=== PATIENT | female | born 1970 | race Caucasian/White ===

== ENCOUNTER → 2016-12-07 | Outpatient (CLI) | payer MEDICAID ==
--- NOTE | 2016-12-08 10:21 | MM ---
Reason for exam: screening (asymptomatic). Last mammogram was performed 11 months ago. History: Family history of breast cancer in cousin, premenopausal breast cancer in mother at age 37, and breast cancer in sister at age 50. Took hormonal contraceptives for 10 years beginning at age 23. Physical Findings: A clinical breast exam by your physician is recommended on an annual basis and results should be correlated with mammographic findings. MG 3D Screening Mammo W/Cad Bilateral CC and MLO view(s) were taken. Prior study comparison: December 23, 2015, bilateral MG 3d diag mammo w/cad JOSE LUIS. December 16, 2014, bilateral MG screening mammo w CAD. The breast tissue is heterogeneously dense. This may lower the sensitivity of mammography. There is no discrete abnormality. No significant changes when compared with prior studies. ASSESSMENT: Negative, BI-RAD 1 RECOMMENDATION: Routine screening mammogram of both breasts in 1 year.
== END | disposition home or self-care (01) ==
LOC: RADMAMWWP 07:37
PROVIDERS: ATTEND Family Medicine
DX: Z12.31 Encounter for screening mammogram for malignant neoplasm of breast (principal)
CPT/HCPCS: 77063; G0202

== ENCOUNTER → 2018-02-12 | Outpatient (CLI) | payer MEDICAID ==
[2018-02-12 11:40] VITALS: BP 129/83; PULSE 71; TEMP 97.7; BMI 23.6
--- NOTE | 2018-02-12 12:16 | P.HPOB ---
History of Present Illness H&P Date: 02/12/18 Chief Complaint: The patient is here for her routine gynecologic exam and mammogram. This is a 47-year-old within LNMP of 2015. She has had very scant vaginal bleeding since her endometrial ablation in 2012. Her menstrual periods are essentially nonexistent except for occasional scant spotting. She does believe her ovaries are still functioning and still have some cyclic breast changes. She has noticed more hot flashes especially at night. She can wake with hot flashes. She denies any significant problems with hot flashes during the day. She has been since 2015 and is not seeing anybody at this time. Review of Systems She has lost 13 pounds over the last 3 years. She denies respiratory, cardiac, or G.I. problems. Musculoskeletal: she has mild back pains with certain movements. Past Medical History Past Medical History: Fibromyalgia History of Any Multi-Drug Resistant Organisms: None Reported Past Surgical History: Uterine Ablation (In 2012) Past Anesthesia/Blood Transfusion Reactions: Previous Problems w/ Anesthesia, Motion Sickness Additional Past Anesthesia/Blood Transfusion Reaction / Comment(s): lidocaine did not work " felt everything throughout the procedure for uterine ablation" Past Psychological History: Anxiety, Depression Smoking Status: Never smoker Past Alcohol Use History: Occasional Past Drug Use History: None Reported - Past Family History Mother Family Medical History: Cancer (Breast cancer) Additional Family Medical History / Comment(s): breast Medications and Allergies Home Medications Medication Instructions Recorded Confirmed Type Flexeril(Dose Unknown) 1 tab PO DIRECTED PRN 01/18/15 02/12/18 History Allergies Allergy/AdvReac Type Severity Reaction Status Date / Time lidocaine AdvReac "did not Verified 02/12/18 11:41 work-felt everything" Exam - Vital Signs Vital signs: Vital Signs Temp Pulse BP 02/12/18 11:36 97.7 F 71 129/83 Intake and Output 02/11/18 02/12/18 02/12/18 22:59 06:59 14:59 Other: Weight 70.307 kg Height 5'8", BMI 23.6. This is a well-developed well-nourished white female who is alert and oriented times 3 in no acute distress. HEENT: Within normal limits. NECK: Supple without mass or thyromegaly. CHEST AND LUNGS: Clear to auscultation. HEART: Regular rate and rhythm. BREASTS: Are without mass or discharge. AXILLARY EXAM: Negative for adenopathy. BACK: Negative for CVA tenderness. ABDOMEN: Soft, nontender, without palpable masses. PELVIC EXAM: Normal external genitalia. Cervix and vagina appear normal. There is no unusual discharge. There is no evidence of prolapse. The uterus is multiparous, midposition, nongravid size and nontender. There are no palpable adnexal masses or tenderness. RECTAL EXAM: negative for mass or tenderness and is negative for occult blood. EXTREMITIES: Nontender. IMPRESSION: 1. 47-year-old perimenopausal female with mild vasomotor symptoms at night. 2. Scant menstrual flow since her endometrial ablation. 3. Normal gynecologic exam. PLAN: 1. Pap smear was performed. 2. Self breast examination was discussed. 3. Screening mammogram will be done today. 4. Osteoporosis prevention was discussed. 5. The patient will keep a menstrual calendar and call if she's having menstrual problems. 6. STD prevention was discussed. I have recommended that she limit sexual partners and use condoms if she is sexually active. 7. She will return in one year.
--- NOTE | 2018-02-14 12:11 | MM ---
Reason for exam: screening (asymptomatic). Last mammogram was performed 1 year and 2 months ago. History: Family history of premenopausal breast cancer in mother at age 37 and breast cancer in sister at age 50. Took hormonal contraceptives for 10 years beginning at age 23. Physical Findings: A clinical breast exam by your physician is recommended on an annual basis and results should be correlated with mammographic findings. MG 3D Screening Mammo W/Cad Bilateral CC and MLO view(s) were taken. Prior study comparison: December 07, 2016, bilateral MG 3d screening mammo w/cad. December 23, 2015, bilateral MG 3d diag mammo w/cad [facility]SE LU[facility]. The breast tissue is heterogeneously dense. This may lower the sensitivity of mammography. No significant changes when compared with prior studies. ASSESSMENT: Negative, BI-RAD 1 RECOMMENDATION: Routine screening mammogram of both breasts in 1 year.
--- NOTE | 2018-02-19 13:01 | P.PN ---
Progress Note - Text Progress Note Date: 02/19/18 The patient's Pap smear from 02/12/2018 was negative that showed a shift in the bacteria consistent with bacterial vaginosis. The patient was notified of this by phone. She states she does have occasional slight discharge and slight odor. A/bacterial vaginosis P/metronidazole 500 mg 1 PO b.i.d. times 7 days. No refills. An E- prescription will be sent to [facility].
== END | disposition home or self-care (01) ==
LOC: WWCWWP 10:19
PROVIDERS: ATTEND Obstetrics & Gynecology
DX: Z12.31 Encounter for screening mammogram for malignant neoplasm of breast (principal)
CPT/HCPCS: 77063; 77067

== ENCOUNTER → 2018-03-19 | Outpatient (CLI) | payer MEDICAID ==
--- NOTE | 2018-03-19 07:42 | XR ---
EXAMINATION TYPE: XR chest 2V DATE OF EXAM: 03/19/2018 COMPARISON: NONE HISTORY: Mid thoracic and chest pain. TECHNIQUE: Frontal and lateral views of the chest are obtained. FINDINGS: There is no focal air space opacity, pleural effusion, or pneumothorax seen. The cardiac silhouette size is within normal limits. Spine is somewhat straightened on lateral view. IMPRESSION: No acute cardiopulmonary process.
== END | disposition home or self-care (01) ==
LOC: RADXRMAIN 06:51
PROVIDERS: ATTEND Physician Assistant
DX: M54.6 Pain in thoracic spine (principal)
CPT/HCPCS: 71046

== ENCOUNTER → 2018-04-30 | Outpatient (CLI) | payer MEDICAID ==
--- NOTE | 2018-04-30 08:04 | XR ---
EXAMINATION TYPE: XR thoracic spine complete DATE OF EXAM: 04/30/2018 COMPARISON: NONE HISTORY: Back pain Alignment is anatomic. There is no compression deformities. Multilevel degenerative disc disease and hypertrophic changes. Curvature the spine noted. Lungs are clear. IMPRESSION: 1. Multilevel degenerative disc disease.
== END ==
LOC: RADXRMAIN 06:16
PROVIDERS: ATTEND Family Medicine
DX: M51.34 Other intervertebral disc degeneration, thoracic region (principal)
CPT/HCPCS: 72072

== ENCOUNTER → 2018-07-24 | Outpatient (CLI) | payer MEDICAID ==
--- NOTE | 2018-07-24 07:34 | MR ---
EXAMINATION TYPE: MR thoracic spine wo con DATE OF EXAM: 07/24/2018 COMPARISON: Thoracic spine x-ray April 30, 2018 HISTORY: Thoracic back pain for over 2 years per patient TECHNIQUE: Multiplanar, multisequence imaging of thoracic spine is performed without contrast FINDINGS: Spinal cord shows normal course, caliber, and signal as it courses the thoracic spine. Cecil tebral body heights are satisfactory. There is slight levoconvex scoliotic curvature centered in the upper to midthoracic spine on coronal images. Disc space heights are maintained. No large posterior d isc herniations are seen on sagittal images. Mild to minimal multilevel anterior spurring is present. Bone marrow signal intensity is felt within normal limits. Review of axial images shows left paracentral disc protrusion mildly effacing anterolateral thecal sa c at T8-T9 level on axial image 14 series 601. There are additional broad-based small disc protrusions mildly effacing anterior thecal sac T11-T12 and T12-L1 levels. Adjacent to aorta with local mass effect there is 1.5 x 0.9 cm oval T2 hyperintense lesion anterior a nd superior to the left neural foramina and adjacent to the T5 vertebra felt to reflect simple thin-w alled cyst. Etiology uncertain but would be favored benign. IMPRESSION: Mild multilevel degenerative changes in mid to lower thoracic spine as detailed above.
== END | disposition home or self-care (01) ==
LOC: RADMRIMAIN 06:07
PROVIDERS: ATTEND Family Medicine
DX: M47.814 Spondylosis without myelopathy or radiculopathy, thoracic region (principal)
CPT/HCPCS: 72146

== ENCOUNTER → 2018-09-19 | Outpatient (CLI) | payer MEDICAID ==
--- NOTE | 2018-09-19 13:39 | CT ---
EXAMINATION TYPE: CT chest w con DATE OF EXAM: 09/19/2018 COMPARISON: None HISTORY: Chest wall mass CT DLP: 520 mGycm, Automated exposure control for dose reduction was used. CONTRAST: Performed injected with 100 ml mL of Isovue 300. TECHNIQUE: Axial images were obtained at 5 mm thick sections. Reconstructed images are reviewed on [employer] computer in the coronal plane. FINDINGS: Portion of the thyroid visualized is normal. No suspicious lung nodules or focal infiltrates are present. No enlarged mediastinal or hilar adenopathy is evident. There are small pretracheal lymph nodes pre sent. The ascending aorta diameter at the level of the main pulmonary artery is 3.2 cm. The main pul monary artery diameter at the bifurcation is 2.[address] sections are obtained through the upper abdomen. Abdomen is essentially unremarkable. IMPRESSIONS: 1. Normal Chest CT.
== END ==
LOC: RADCTMAIN 12:01
PROVIDERS: ATTEND Surgery
DX: R22.2 Localized swelling, mass and lump, trunk (principal)
CPT/HCPCS: 71260; Q9967

== ENCOUNTER → 2019-02-19 | Outpatient (CLI) | payer MEDICAID ==
[2019-02-19 08:14] VITALS: BP 117/81; PULSE 92; RESP 16; TEMP 98; BMI 25.9
--- NOTE | 2019-02-19 09:03 | P.HPOB ---
History of Present Illness H&P Date: 02/19/19 Chief Complaint: The patient is here for her routine gynecologic exam and ma mmogram. This is a 48-year-old G6PD for with an LNMP of 2016. She is status post endometrial ablation in 2012. Her menstrual periods have progressively gotten welt rougher and have been very scant during the past 3 years. She has had no vaginal bleeding during the past 3 months. She denies any significant hot flashes. She is without gynecologic complaints. Review of Systems The patient has gained 15 pounds over the last year. This was after losing 20 pounds during the prior years. She denies respiratory, cardiac, or G.I. problems. 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 Previous hypermenorrhea improved post endometrial ablation. History of Any Multi-Drug Resistant Organisms: None Reported Past Surgical History: Uterine Ablation Additional Past Surgical History / Comment(s): Endometrial ablation 2012. Colonoscopy 2016(next 5yrs). Past Anesthesia/Blood Transfusion Reactions: Previous Problems w/ Anesthesia, Motion Sickness Additional Past Anesthesia/Blood Transfusion Reaction / Comment(s): lidocaine did not work " felt everything throughout the procedure for uterine ablation" Past Psychological History: Anxiety, Depression Smoking Status: Never smoker Past Alcohol Use History: Occasional (4-6 per week) Past Drug Use History: None Reported Additional History: She has been since 2015. She works at [employer]. - Past Family History Mother Family Medical History: Cancer Additional Family Medical History / Comment(s): breast cancer. Maternal aunt and maternal cousin had breast cancer. Sister(s) Family Medical History: Cancer Additional Family Medical History / Comment(s): Breast cancer Father Family Medical History: Cancer Additional Family Medical History / Comment(s): Colon cancer. Medications and Allergies Home Medications Medication Instructions Recorded Confirmed Type Cholecalciferol [Vitamin D3] 1,000 unit PO DAILY 02/19/19 02/19/19 History Allergies Allergy/AdvReac Type Severity Reaction Status Date / Time lidocaine AdvReac "did not Verified 02/19/19 08:14 work-felt everything" Exam Vital Signs Temp Pulse Resp BP Pulse Ox 02/19/19 08:07 98.0 F 92 16 117/81 99 Intake and Output 02/18/19 02/19/19 02/19/19 22:59 06:59 14:59 Other: Weight 78.471 kg Height 5'8", weight 173 pounds, BMI 26.3. This is a well-developed well-nourished white female who is alert and oriented times 3 in no acute distress. HEENT: Within normal limits. NECK: Supple without mass or thyromegaly. CHEST AND LUNGS: Clear to auscultation. HEART: Regular rate and rhythm. BREASTS: Are without mass or discharge. AXILLARY EXAM: Negative for adenopathy. BACK: Negative for CVA tenderness. ABDOMEN: Soft, nontender, without palpable masses. PELVIC EXAM: Normal external genitalia. Cervix and vagina appear normal. There is no unusual discharge. There is no evidence of prolapse. The uterus is midposition, nongravid size and nontender. There are no palpable adnexal masses or tenderness. RECTAL EXAM: rectovaginal exam is negative for mass or tenderness and is negative for occult blood. EXTREMITIES: Nontender. IMPRESSION: 1. 48 year old female with normal gynecologic exam with scant menstrual bleeding after her endometrial ablation in 2012. 2. 3 months of amenorrhea. Possible perimenopause. 3. Strong family history of breast cancer in her mother, sister, and to second- degree relatives. The patient states she is BRCA negative. PLAN: 1. Pap smear was deferred since she had a negative one on 02/12/2018. 2. Self breast awareness was discussed with the patient. 3. Screening mammogram will be done today. 4. Osteoporosis prevention was discussed. I have stressed the importance of adequate calcium, vitamin D and regular exercise. Recommended amounts of calcium and vitamin D were also discussed. 5. She will keep a menstrual calendar of any vaginal bleeding. She will call if she is having vaginal bleeding problems, or bleeding after 12 months of no vaginal bleeding. 6. She was advised to return in one year for her annual well woman exam.
--- NOTE | 2019-02-21 10:25 | MM ---
Reason for exam: screening (asymptomatic). Last mammogram was performed 1 year ago. History: Family history of premenopausal breast cancer in mother at age 37 and breast cancer in sister at age 50. Took hormonal contraceptives for 10 years beginning at age 23. Physical Findings: A clinical breast exam by your physician is recommended on an annual basis and results should be correlated with mammographic findings. MG 3D Screening Mammo W/Cad Bilateral CC and MLO view(s) were taken. Prior study comparison: February 12, 2018, bilateral MG 3d screening mammo w/cad. December 07, 2016, bilateral MG 3d screening mammo w/cad. The breast tissue is heterogeneously dense. This may lower the sensitivity of mammography. No significant changes when compared with prior studies. ASSESSMENT: Negative, BI-RAD 1 RECOMMENDATION: Routine screening mammogram of both breasts in 1 year.
== END | disposition home or self-care (01) ==
LOC: WWCWWP 08:00
PROVIDERS: ATTEND Obstetrics & Gynecology
DX: Z12.31 Encounter for screening mammogram for malignant neoplasm of breast (principal)
CPT/HCPCS: 77063; 77067

== ENCOUNTER → 2019-04-01 | Outpatient (CLI) | payer MEDICAID ==
[2019-04-01 11:51] VITALS: BP 121/88; PULSE 73; RESP 16
--- NOTE | 2019-04-01 14:52 | P.PAINCN ---
History of Present Illness - Reason for Consult Consult date: 04/01/19 - History of Present Illness This is an initial consultation visit for this 48 years old female with a chronic history, of severe left-sided mid back pain, started more than 3 years ago, and patient was diagnosed with thoracic close to T5 vertebra and the the Aorta , and she was evaluated by cardio thoracic surgeon at [facility] , and he recommended no surgical intervention, patient reported that she had continuous pain in the mid back area with intensity 5/10 increased with any activity, she continued to work, but the intensity of the pain interfering with her quality of life, also patient complaining of severe right shoulder pain, started after she had a flu vaccine in August 2018, the pain in the right shoulder increases with any shoulder movement, he denies any motor or sensory deficit she denies any numbness or tingling sensation in the right shoulder Past Medical History Past Medical History: Fibromyalgia 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 Previous hypermenorrhea improved post endometrial ablation. History of Any Multi-Drug Resistant Organisms: None Reported Past Surgical History: Uterine Ablation Additional Past Surgical History / Comment(s): Endometrial ablation 2012. Colonoscopy 2017(next 5yrs). Past Anesthesia/Blood Transfusion Reactions: Previous Problems w/ Anesthesia, Motion Sickness Additional Past Anesthesia/Blood Transfusion Reaction / Comm: lidocaine did not work " felt everything throughout the procedure for uterine ablation" Past Psychological History: Anxiety, Depression Smoking Status: Never smoker Past Alcohol Use History: Occasional Past Drug Use History: None Reported - Past Family History Sister(s) Family Medical History: Cancer Additional Family Medical History / Comment(s): Breast cancer Father Family Medical History: Cancer Additional Family Medical History / Comment(s): Colon cancer. Mother Family Medical History: Cancer Additional Family Medical History / Comment(s): breast cancer. Maternal aunt and maternal cousin had breast cancer. Medications and Allergies Home Medications Medication Instructions Recorded Confirmed Type Cholecalciferol [Vitamin D3] 1,000 unit PO DAILY 02/19/19 02/19/19 History Cyclobenzaprine [Flexeril] 10 mg PO DAILY PRN 04/01/19 04/01/19 History FLUoxetine HCL [PROzac] 20 mg PO DAILY 04/01/19 04/01/19 History Allergies Allergy/AdvReac Type Severity Reaction Status Date / Time lidocaine AdvReac "did not Verified 04/01/19 11:40 work-felt everything" Physical Exam Vitals: Vital Signs Pulse Resp BP Pulse Ox 04/01/19 11:42 73 16 121/88 97 Intake and Output 03/31/19 04/01/19 04/01/19 22:59 06:59 14:59 Other: Weight 76.204 kg Social history : not smoker , NO ETOH , NO Illegal drugs u : Review of Systems : - Constitutional : no chills , no fever , no night sweats , - Ears : no ear discharge , no change in hearing -Nose, Mouth ,Throat ; no bleeding gums, no sore throat , no epistaxis , -Cardiovascular : Denies chest pain, , no orthopnea , no palpitation -Respiratory : Denies cough , no dyspnea , no hemoptysis -Gastrointestinal : no change in bowel habits , no coffee-ground emesis . -Genitourinary : No hematuria , no discharge , no incontinence, -Musculoskeletal : No gait dysfunction , report left side mid back pain , - Neurological : no ataxia , no tremor , no sezure , -Psychatric : no suicidal ideation no hallucination - Endocrine : no cold intolerence , no polyuria , no polydypsia , -Hematologic : no easy bleeding , no easy brusing , -Allergic / immm : no angioedema , no wheezing ,no allergic rhinitis -Integumentary : no brttle nails , no change hair / nails , no foot/leg ulcers . Physical Examinations : -Constitutional : Cooperative , not in acute distress . -HEENT : nech ; supple , no Lymphadenopathy , no Thyromegaly , :eyes : no icterus, no photophobia . - musculoskeltal: normal gait External rotation of the right shoulder associated with severe pain Shoulder shows full range of motion bilaterally . Flexion and rotation and extension of the torso associated with pain positive thoracic facet loading test . Lumber spine moter stegnth lower extremities ,thigh and legs 5/5 Right side , 5/5 Left side Results Comments: MRI of the thoracic spine done 07/24/2018= left T8 9 bulging disc left cyst adjacent to the T5 vertebral, Assessment and Plan Plan: Assessment and plan= mid back pain secondary to thoracic degenerative disc disease, thoracic spondylosis Patient could benefit from thoracic epidural steroid injection at T8 9 (left paramedian approach ) Patient continued to have pain after the thoracic epidural then we could consider doing diagnostic medial branch block left side thoracic area Left sideT5 to T89. Right shoulder arthralgia, we'll refer patient to the Dr. Tinsley for evaluation regarding right shoulder pain. Time with Patient: Greater than 30 PQRS Measure Charge Sheet Measure #130: Documentation of Current Meds in Medical Chart: Patient's medications documented in chart Measure #226: Tobacco Use: Screen & Cessation Intervention: Pt not a tobacco user Measure #111: Pneumonia Vaccination: Pneumococcal vaccine NOT administered or previously given Measure #47: Advance Care Plan: Advance care planning discussed & documented, pt chose/unable to give Measure #412: Opioid Treatment Agreement: No documentation of signed opioid treatment agreement Measure #408: Opioid Therapy Follow-up Evaluation: Patient had NO f/u eval minimum every 3 months during opioid therapy Measure #317: Preventitive Care & Scrn High Bld Press & F/U: Normal blood pressure, f/u not required Measure #128: Body Mass Index (BMI) Screening & Follow-up: BMI documented ABOVE normal parameters - f/u documented Measure #131: Pain Assessment & Follow-up: Pain positive & plan documented, Follow-up scheduled Measure #431: Unhealthy Alcohol Use Preventative Care & Scrn: Patient not identified as an unhealthy alcohol user PQRS Narrative: Smoking Status Never smoker Do You Want the Pneumonia No Vaccine AT THIS TIME? Blood Pressure 121/88 Pain Intensity [Left Upper 5 Back] Scale Used Numeric (1 - 10) Hx Alcohol Use (MH) No Home Medications: Ambulatory Orders Cholecalciferol [Vitamin D3] 1,000 unit PO DAILY 02/19/19 Cyclobenzaprine [Flexeril] 10 mg PO DAILY PRN 04/01/19 FLUoxetine HCL [PROzac] 20 mg PO DAILY 04/01/19
== END | disposition home or self-care (01) ==
LOC: PNWHC3 11:26
PROVIDERS: ATTEND Specialist
DX: G89.29 Other chronic pain (principal); M51.34 Other intervertebral disc degeneration, thoracic region; M47.814 Spondylosis without myelopathy or radiculopathy, thoracic region; M25.511 Pain in right shoulder; F32.9 Major depressive disorder, single episode, unspecified; F41.9 Anxiety disorder, unspecified; Z79.899 Other long term (current) drug therapy; Z88.6 Allergy status to analgesic agent
CPT/HCPCS: 99211

== ENCOUNTER 2019-04-07 06:04 | Day surgery (SDC) | payer MEDICAID ==
[2019-04-02 12:27] VITALS: BMI 25.5
[~2019-04-07 06:04] MED LIST: LACTATED RINGERS 1,000 ML IV SCH
[2019-04-07] MEDS ORDERED: LIDOCAINE 1% 20 ML VIAL (10MG/ML) FOR IV START INTRADERMA ONE (06:35)
[2019-04-07 06:38] VITALS: RESP 16; TEMP 98.2
--- NOTE | 2019-04-07 07:17 | P.PCN ---
Date of Procedure: 04/07/19 Procedure(s) Performed: PREOPERATIVE DIAGNOSIS: 1- Thoracic Degenerative Disc Diseases 2-Thoracic spondylosis with Facet arthropathy without myelopathy POSTOPERATIVE DIAGNOSIS: 1-Thoracic Degenerative Disc Diseases 2-Thoracic spondylosis with Facet arthropathy without myelopathy PROCEDURE 1. Thoracic epidural steroid injection under fluoroscopic guidance at the T8-9 level. ( Left paramedian approach) 2. Thoracic epidurogram. ANESTHESIA: Local with 1% lidocaine 3 ml and , moderate sedation with intravenous Versed 2 mg ,and fentanyle 100 Mcg EBL: Minimal PROCEDURE INDICATION: The patient with mid back pain and radiculitis symptoms unresponsive to conservative treatment. Fluoroscopy was used to optimize visualization of the needle placement and to maximize safety. PROCEDURE DESCRIPTION / TECHNIQUE: The patient was seen and identified in the preoperative area. Risks, benefits, complications including but not limited to infections ,bleeding ,allergic reaction to the medications ,nerve damage and not complete pain releife , and alternatives were discussed with the patient. The patient agreed to proceed with the procedure and signed the consent. IV was started, and vital signs were stable. Patient was taken to the OR and time out was completed. The patient was placed in the prone position on procedure table and a pillow was placed under the abdomen to reduce lumbar lordosis. The thoracic area was prepped and draped in the usual sterile fashion.ere closely monitored during the procedure. Conscious sedation was used during the procedure to decrease patients anxiety. Vital signs was monitered during the entire procedure. Using anterior-posterior fluoroscopy, the T8-9 interlaminar space was identified and the skin over this site was marked and then infiltrated with 1% lidocaine subcutaneously. Subsequently, a 20-gauge Tuohy epidural needle was inserted and advanced toward the epidural space using the ``Loss of resistance technique and guided by AP and lateral fluoroscopy. The correct needle position in the epidural space was verified with the injection of 2 mL of the water soluble contrast dye Isovue 200 contrast and observing an excellent epidurogram with the epidural spread of the dye, after negative aspiration for blood and CSF and in the absence of paresthesias. Again after negative aspiration, a 6 ml mixture containing 80 mg of Depo-medrol , and 2 ml of preservative free Normal Saline, and 2 ml of preservative free lidocaine 1% solution was injected and a washout of epidurogram was seen. Needle was withdrawn intact, skin was cleansed, and bandages were applied. COMPLICATIONS: None DISPOSITION / PLANS: The patient was placed in a supine position and transferred to the recovery area in a stable condition for observation. There was no evidence of lower extremity motor or sensory deficit after the procedure. Patient was discharged from the recovery room after meeting discharge criteria. Home discharge instructions were given to the patient by the staff. The patient was reexamined prior to discharge. The patient will schedule a follow up in the clinic in 2-4 weeks.
--- NOTE | 2019-04-07 07:56 | FL ---
EXAMINATION TYPE: FL guided pain mgmt statistic DATE OF EXAM: 04/07/2019 HISTORY: Flouroscopy time 2 seconds of fluoroscopy provided. IMPRESSION: 1. Fluoroscopy time.
[2019-04-07 08:09] VITALS: BP 112/77; PULSE 77
[2019-04-07] MEDS ORDERED: IV FLUID CONTINUATION 1,000 ML IV ONE (08:20)
== END 2019-04-07 08:45 | disposition home or self-care (01) ==
LOC: ORPAIN 06:04
PROVIDERS: ATTEND Specialist
DX: M51.34 Other intervertebral disc degeneration, thoracic region (principal); M47.24 Other spondylosis with radiculopathy, thoracic region; M79.7 Fibromyalgia; F32.9 Major depressive disorder, single episode, unspecified; F41.9 Anxiety disorder, unspecified; Z80.3 Family history of malignant neoplasm of breast; Z80.0 Family history of malignant neoplasm of digestive organs; Z79.899 Other long term (current) drug therapy; Z88.8 Allergy status to other drugs, medicaments and biological substances
CPT/HCPCS: 81025; 62321; J1030; J3301; J3010; Q9966

== ENCOUNTER 2019-04-23 08:51 | Day surgery (SDC) | payer MEDICAID ==
[2019-04-21 09:46] VITALS: BMI 25.8
[2019-04-23 09:06] VITALS: RESP 16; TEMP 98.4
[2019-04-23] MEDS ORDERED: LIDOCAINE 1% 20 ML VIAL (10MG/ML) FOR IV START INTRADERMA ONE (09:14)
[2019-04-23] MEDS ORDERED: LACTATED RINGERS 1,000 ML IV ONE (09:14)
--- NOTE | 2019-04-23 09:38 | P.PCN ---
Date of Procedure: 04/23/19 Description of Procedure: PREOPERATIVE DIAGNOSIS: Thoracic radiculopathy POSTOPERATIVE DIAGNOSIS: Thoracic radiculopathy PROCEDURE 1. thoracic epidural steroid injection under fluoroscopic guidance at the T 8-9 level. 2. thoracic epidurogram. ANESTHESIA: Local with 1% lidocaine 5 ml and 2mg versed and 100mcg fentanyl EBL: Minimal PROCEDURE INDICATION: The patient with low back pain and radiculitis symptoms unresponsive to conservative treatment. Fluoroscopy was used to optimize visualization of the needle placement and to maximize safety. PROCEDURE DESCRIPTION / TECHNIQUE: The patient was seen and identified in the preoperative area. Risks, benefits, complications including but not limited to infections ,bleeding ,allergic reaction to the medications, nerve damage and incomplete pain relief , as well as alternatives to the procedure were discussed with the patient. The patient agreed to proceed with the procedure and signed the consent. IV was started, and vital signs were stable. Patient was taken to the OR and time out was completed. The patient was placed in the prone position on procedure table and a pillow was placed under the abdomen. The thoracic area was prepped and draped in the usual sterile fashion. Vitals were closely monitored during the procedure. Using anterior-posterior fluoroscopy, the t 8-9 interlaminar space was identified and the skin over this site was marked and then infiltrated with 1% lidocaine subcutaneously. Subsequently, a 20-gauge Tuohy epidural needle was inserted and advanced toward the epidural space using the Loss of resistance technique via paramedian approach and guided by AP and lateral fluoroscopy. The correct needle position in the epidural space was verified with the injection of 1 mL of the water soluble contrast dye Omnipaque 180 contrast and observing an excellent epidurogram with the epidural spread of the dye, after negative aspiration for blood and CSF and in the absence of paresthesias. Again after negative aspiration, a 3 ml mixture containing 40mg of depomedrol and 2 ml of preservative free Normal Saline was injected and a washout of epidurogram was seen. Needle was withdrawn intact, skin was cleansed, and bandages were applied. COMPLICATIONS: None DISPOSITION / PLANS: The patient was placed in a supine position and transferred to the recovery area in a stable condition for observation. There was no evidence of lower extremity motor or sensory deficit after the procedure. Patient was discharged from the recovery room after meeting discharge criteria. Home discharge instructions were given to the patient by the staff. The patient was reexamined prior to discharge. patient will follow up in the clinic for lumbar paraspinal muscle spasm. I have given her a recommendation to trial chelated magnesium.
--- NOTE | 2019-04-23 09:47 | FL ---
EXAMINATION TYPE: FL guided pain mgmt statistic DATE OF EXAM: 04/23/2019 CLINICAL HISTORY: Thoracic pain. TECHNIQUE: Fluoroscopy. COMPARISON: None. FINDINGS: Fluoroscopic guidance was provided during pain relief procedure performed by Dr. Dos Santos. A total of 7 seconds of fluoroscopic time was utilized during the procedure and 1 spot images are ac quired. Images acquired shows needle localization of the thoracic spine. IMPRESSION: As Above.
[2019-04-23 10:19] VITALS: BP 111/75; PULSE 58
[2019-04-23] MEDS ORDERED: IV FLUID CONTINUATION 1,000 ML IV ONE (10:44)
== END 2019-04-23 10:46 | disposition home or self-care (01) ==
LOC: ORPAIN 08:51
PROVIDERS: ATTEND Hospitalist
DX: M54.14 Radiculopathy, thoracic region (principal); M62.830 Muscle spasm of back; N95.9 Unspecified menopausal and perimenopausal disorder
CPT/HCPCS: 62321; J2250; J1030; J3010; Q9966; 99152

== ENCOUNTER → 2019-05-07 | Outpatient (CLI) | payer MEDICAID ==
[2019-05-07 13:41] VITALS: BP 123/89; PULSE 76; RESP 16
--- NOTE | 2019-05-07 14:17 | P.PN ---
Subjective Progress Note Date: 05/07/19 This is a 49-year-old female with chronic history of mid thoracic pain with no precipitating events. The patient underwent thoracic epidural steroid injection which took part of her pain away however she does have constant pain on the left side of her spine that usually extends from T2 all the way down to T12 and to the upper lumbar area on the left side only. The patient tried multiple neck and Flexeril with no relief of her pain. By physical exam she has tenderness in the thoracic and upper lumbar paravertebral musculature. The patient may benefit from getting a diagnostic thoracic medial branch block however at this point I think her pain is mostly muscular and muscular and I will schedule her to have trigger point injection on the left side of her midthoracic and upper lumbar spine. The procedure was explained to the patient and her questions were answered. Objective - Vital Signs Vital signs: Vital Signs Temp Pulse 76 05/07/19 13:33 Resp 16 05/07/19 13:33 BP 123/89 05/07/19 13:33 Pulse Ox 96 05/07/19 13:33 Intake & Output 05/06/19 05/07/19 05/07/19 18:59 06:59 18:59 Weight 77.111 kg
== END | disposition home or self-care (01) ==
LOC: PNWHC3 13:26
PROVIDERS: ATTEND Anesthesiology
DX: G89.29 Other chronic pain (principal); M54.6 Pain in thoracic spine
CPT/HCPCS: 99211

== ENCOUNTER → 2019-05-19 | Day surgery (SDC) | payer MEDICAID ==
[2019-05-14 12:39] VITALS: BMI 25.8
[~2019-05-19] MED LIST changes: +KETOROLAC 30 MG/ML 1 ML VIAL IM ONE
[2019-05-19 10:08] VITALS: TEMP 97
--- NOTE | 2019-05-19 11:06 | P.PCN ---
Date of Procedure: 05/19/19 Procedure(s) Performed: Procedure= left side thoracic and upper lumbar trigger point injection (6 tri ggerpoints injected in the left side thoracic paravertebral muscles and upper lumbar paravertebral muscles) Preoperative diagnosis= 1-myofascial pain syndrome left side thoracic and lumbar area. 2-thoracic spondylosis with thoracic facet arthropathy 3-thoracic degenerative disc disease Postoperative diagnosis= same as preoperative diagnosis Complication = none Condition= stable Anesthesia=none Indication for the procedure= this is 49 years old female with a chronic history of severe upper and mid back pain patient diagnosed with thoracic degenerative disc disease and thoracic spondylosis with thoracic facet arthropathy, also myofascial pain syndrome thoracic and upper lumbar area , and she is here to have trigger point injections, in the preoperative holding area patient reported that she is having severe intractable headache, and typically she had migraine headache , for this reason I gave the patient 30 mg of Toradol intramuscular, and also patient and prescription for Ultram 50 mg every 8 hours when necessary total of 20, examination showed patient had multiple trigger point in the left side thoracic paravertebral muscles in the thoracic area and upper lumbar area, the trigger point was marked and then patient taken to the procedure room placed in sitting position the back prepped with chlorhexidine 3. Then under sterile technique each of the trigger point injected with the mixture of ropivacaine 0.5% 3 mL and 40 mg of Depo-Medrol injection done after negative aspiration under was no paresthesia during the injection patient tolerated the procedure well without any complications, patient will follow up in the pain clinic in a few weeks.
[2019-05-19 11:15] VITALS: RESP 18
[2019-05-19 11:30] VITALS: BP 121/80; PULSE 73
== END ==
LOC: ORPAIN 09:28
PROVIDERS: ATTEND Anesthesiology
DX: M79.18 Myalgia, other site (principal); M47.814 Spondylosis without myelopathy or radiculopathy, thoracic region; M51.34 Other intervertebral disc degeneration, thoracic region; G43.919 Migraine, unspecified, intractable, without status migrainosus; Z78.0 Asymptomatic menopausal state
CPT/HCPCS: 20553; J1030; J1885

== ENCOUNTER → 2019-06-05 | Outpatient (CLI) | payer MEDICAID ==
[2019-06-05 11:54] VITALS: BP 117/81; PULSE 79; RESP 18
--- NOTE | 2019-06-06 14:00 | P.PAINPG ---
Subjective Progress Note Date: 06/05/19 This is a 49-year-old female with chronic history of mid thoracic pain with no precipitating events. The patient underwent thoracic epidural steroid injection which took part of her pain away. She then underwent left thoracic and upper lumbar trigger point injections on 05/19/2019 with good benefit. Today, she has multiple sources of pain complaints including left thoracic pain, bilateral neck pain resulting in headaches, low back pain radiating to bilateral posterior thighs, but not past the knee. Her headaches are typically bilateral, associated with photo and phonophobia. She states that for 2 days, she experiences significant neck tightness which then resulted in a headache. She believes her headaches are due to the significant tightness in her neck. She has tried myofascial release massages for her multiple pain complaints with some benefit. She also takes Flexeril occasionally with some benefit. Review of systems is negative for chest pain, shortness of breath, new onset weakness, numbness/tingling, abdominal pain, malaise, fever, night sweats, chills, homicidal or suicidal ideation, or bowel or bladder incontinence. Physical exam: Vitals: Reviewed in EMR GENERAL: Well appearing, in no acute distress PSYCH: Mood and affect is appropriate. Awake, alert, and oriented SKIN: Skin color, texture, turgor normal, no rashes or lesions HEENT: Normocephalic, atraumatic. EOM intact CV: No pedal edema RESP: Respirations are unlabored, no audible wheezing GI: Abdomen non-distended MUSCULOSKELETAL: Bilateral upper and lower extremity strength is normal and symmetric. No atrophy or tone abnormalities are noted. Neck: Significant pain to palpation over the cervical paraspinous muscles bilaterally, with multiple palpable trigger points. Spurling negative, Axial Loading Test negative, Barragan's sign negative. No obvious deformity or signs of trauma. Normal cervical lordotic curve and normal cervical spine range of motion Lumbar spine: Straight leg raising in the sitting position is negative for radicular pain. Significant tenderness to palpation over the lumbar spine and paraspinous muscles bilaterally, with multiple palpable trigger points. Negative for pain with facet loading and back extension/rotation. Thoracic spine: No pain to palpation over thoracic spinous processes. Palpable trigger point inferior to scapula. Buttocks: No pain to palpation over the PSIS, sacroiliac joint maneuvers are negative for pain. Extremities: Peripheral joint ROM is full and pain free without obvious instability or laxity in all four extremities. No edema or skin discolorations noted. Gait: Gait is normal NEUR: Bilateral upper and lower extremity coordination and muscle stretch reflexes are physiologic and symmetric. Negative clonus bilaterally. No loss of sensation is noted. Assessment: 1. Myofascial pain 2. Chronic pain syndrome Plan: 1. Will schedule trigger point injections to cervical paraspinals, rhomboids, traps as well as lumbar paraspinal musculatures. 2. Discussed the importance of continued exercise and weight maintenance. 3. Follow-up: For procedure 4. Encouraged the patient to discuss with PCP possible abortive treatment for headaches/neurology referral PQRS measures: 1-Patient's medications are documented in the chart. 2-Tobacco use is negative, counseling given 3-Patient has not had a pneumococcal vaccine. 4-Advanced care planning discussed, patient chose/not able to give. 5-Opioid contract not signed with the patient. 6-Pain positive, follow-up visit or procedure scheduled 7-patient blood pressure measured and documented, and is within normal limits. 8-Patient's weight was measured, and body mass index within the normal limits 9-Patient WAS NOT identified as an unhealthy alcohol user. Objective - Vital Signs Vital signs: Vital Signs Temp Pulse 79 06/05/19 11:49 Resp 18 06/05/19 11:49 BP 117/81 06/05/19 11:49 Pulse Ox 97 06/05/19 11:49 Intake & Output 06/05/19 06/06/19 06/06/19 18:59 06:59 18:59 Weight 77.111 kg PQRS Measure Charge Sheet PQRS Narrative: Smoking Status Never smoker Blood Pressure 117/81 Pain Intensity [Back] 5 Scale Used Numeric (1 - 10) Hx Alcohol Use (MH) No Home Medications: Ambulatory Orders Cyclobenzaprine [Flexeril] 10 mg PO DAILY PRN 04/01/19 FLUoxetine HCL [PROzac] 20 mg PO DAILY 04/01/19 Controlled Substance Measures - Controlled Substance Measures Is patient prescribed a controlled substance at discharge?: No
== END | disposition home or self-care (01) ==
LOC: PNWHC3 11:19
PROVIDERS: ATTEND Anesthesiology
DX: G89.4 Chronic pain syndrome (principal); M79.18 Myalgia, other site; Z79.899 Other long term (current) drug therapy
CPT/HCPCS: 99211

== ENCOUNTER 2019-06-11 07:58 | Day surgery (SDC) | payer MEDICAID ==
[2019-06-09 15:04] VITALS: BMI 25.8
[~2019-06-11 07:58] MED LIST changes: -KETOROLAC 30 MG/ML 1 ML VIAL IM ONE
[2019-06-11 08:23] VITALS: RESP 18; TEMP 97.1
--- NOTE | 2019-06-11 09:50 | P.PCN ---
Date of Procedure: 06/11/19 Preoperative Diagnosis: Myofascial pain Postoperative Diagnosis: Same as above Procedure(s) Performed: Trigger point injection Anesthesia: none Surgeon: Yaw Watson Pathology: none sent Condition: stable Disposition: PACU Description of Procedure: The patient assumed the sitting position. Skin was prepped with ChloraPrep at the trigger points that were marked at the skin preoperatively. I then used 25- gauge 1-1/2 inch needle to go through the skin and into the trigger points were injected 1 mL of a solution made up of 12 MLS of ropivacaine 0.5% +40 mg of Kenalog. The muscles injected were trapezius bilaterally rhomboids bilaterally and lumbar paravertebral musculature bilaterally. Patient tolerated procedure well.
[2019-06-11 10:01] VITALS: BP 121/82
[2019-06-11 10:22] VITALS: PULSE 75
== END 2019-06-11 10:24 | disposition home or self-care (01) ==
LOC: ORPAIN 07:58
PROVIDERS: ATTEND Anesthesiology
DX: M79.18 Myalgia, other site (principal); G89.4 Chronic pain syndrome; Z78.0 Asymptomatic menopausal state; Z79.899 Other long term (current) drug therapy
CPT/HCPCS: 20553; J3301

== ENCOUNTER → 2019-07-09 | Outpatient (CLI) | payer MEDICAID ==
[2019-07-09 11:32] VITALS: BP 122/82; PULSE 77; RESP 18
--- NOTE | 2019-07-11 09:04 | P.PAINPG ---
Subjective Progress Note Date: 07/09/19 This is a 49-year-old female with chronic history of mid thoracic pain with no precipitating events. The patient underwent thoracic epidural steroid injection which took part of her pain away. She then underwent left thoracic and upper lumbar trigger point injections on 05/19/2019 with good benefit. This was repeated on 06/11/2019. She reports that all the procedures that she has had so far give her some benefit, but short-lived. She does not want to pursue further procedures at this time, as she is unable to afford it. She would like to try medication management. She reports that the pain is worse towards the end of the day and she often leaves work feeling exhausted and depressed. Today, she has multiple sources of pain complaints including left thoracic pain, low back pain radiating to bilateral posterior thighs, but not past the knee. She has tried myofascial release massages for her pain complaints with some benefit. She has also tried acupuncture. She also takes Flexeril occasionally with some benefit. He continues to do home exercises. She wants to lose about 20 pounds. Review of systems is negative for chest pain, shortness of breath, new onset weakness, numbness/tingling, abdominal pain, malaise, fever, night sweats, chills, homicidal or suicidal ideation, or bowel or bladder incontinence. Physical exam: Vitals: Reviewed in EMR GENERAL: Well appearing, in no acute distress PSYCH: Mood and affect is appropriate. Awake, alert, and oriented SKIN: Skin color, texture, turgor normal, no rashes or lesions HEENT: Normocephalic, atraumatic. EOM intact CV: No pedal edema RESP: Respirations are unlabored, no audible wheezing GI: Abdomen non-distended MUSCULOSKELETAL: Bilateral upper and lower extremity strength is normal and symmetric. No atrophy or tone abnormalities are noted. Lumbar spine: Straight leg raising in the sitting position is negative for radicular pain. Significant tenderness to palpation over the lumbar spine and paraspinous muscles bilaterally, with multiple palpable trigger points. Negative for pain with facet loading and back extension/rotation. Thoracic spine: No pain to palpation over thoracic spinous processes. Palpable trigger point inferior to scapula on left side. Buttocks: No pain to palpation over the PSIS, sacroiliac joint maneuvers are negative for pain. Extremities: Peripheral joint ROM is full and pain free without obvious instability or laxity in all four extremities. No edema or skin discolorations noted. Gait: Gait is normal NEUR: Bilateral upper and lower extremity coordination and muscle stretch reflexes are physiologic and symmetric. Negative clonus bilaterally. No loss of sensation is noted. Assessment: 1. Myofascial pain 2. Chronic pain syndrome Plan: 1. No further procedures at this time. 2. Discussed the importance of continued exercise and weight maintenance. 3. Medications: Will prescribe Celebrex 200 mg daily which would be helpful for her myofascial pain. Patient has no contraindications such as renal impairment, GI problems, history of cardiac events. Also instructed to take Tylenol 1 g every 8 hours scheduled. We discussed a prescription for Cymbalta, patient would like to try NSAIDs and Tylenol first, and will call if she would like a prescription for Cymbalta. 4. Follow-up: When necessary PQRS measures: 1-Patient's medications are documented in the chart. 2-Tobacco use is negative, counseling not given 3-Patient has not had a pneumococcal vaccine. 4-Advanced care planning discussed, patient chose/not able to give. 5-Opioid contract not signed with the patient. 6-Pain positive, follow-up visit or procedure not scheduled 7-patient blood pressure measured and documented, and is within normal limits. 8-Patient's weight was measured, and body mass index within the normal limits 9-Patient WAS NOT identified as an unhealthy alcohol user. Objective - Vital Signs Vital signs: Vital Signs Temp Pulse 77 07/09/19 11:26 Resp 18 07/09/19 11:26 BP 122/82 07/09/19 11:26 Pulse Ox 96 07/09/19 11:26 PQRS Measure Charge Sheet PQRS Narrative: Smoking Status Never smoker Blood Pressure 122/82 Pain Intensity [Left Upper 7 Back] Pain Intensity [Left Lower 7 Back] Scale Used Numeric (1 - 10) Hx Alcohol Use (MH) No Home Medications: Ambulatory Orders Cyclobenzaprine [Flexeril] 10 mg PO DAILY PRN 04/01/19 FLUoxetine HCL [PROzac] 20 mg PO DAILY 04/01/19 Controlled Substance Measures - Controlled Substance Measures Is patient prescribed a controlled substance at discharge?: No
== END | disposition home or self-care (01) ==
LOC: PNWHC3 11:15
PROVIDERS: ATTEND Anesthesiology
DX: G89.4 Chronic pain syndrome (principal); M79.18 Myalgia, other site; Z79.899 Other long term (current) drug therapy
CPT/HCPCS: 99211

== ENCOUNTER → 2020-02-09 | Outpatient (CLI) | payer MEDICAID ==
[2020-02-09 16:52] LABS: T4, Free (Free Thyroxine) 0.9 ng/dL (0.80-1.80)
== END | disposition home or self-care (01) ==
LOC: LABWHC1 07:58
PROVIDERS: ATTEND Family Medicine
DX: R68.89 Other general symptoms and signs (principal)
CPT/HCPCS: 36415; 84439; 84443

== ENCOUNTER → 2020-02-20 | Outpatient (CLI) | payer MEDICAID ==
[2020-02-20 11:35] LABS: Basophils % (A) 0 %; Eosinophils % (A) 0 %; HCT 39.6 % (34.0-46.0); HGB 13.5 gm/dL (11.4-16.0); Lymphocytes # (A) 1.9 k/uL (1.0-4.8); Lymphocytes % (A) 21 %; MCH 30.1 pg (25.0-35.0); MCV 88.4 fL (80.0-100.0); Mean Platelet Volume 6.7; Monocytes # (A) 0.4 k/uL (0-1.0); Monocytes % (A) 4 %; Neutrophils # (A) 6.7 k/uL (1.3-7.7); Neutrophils % (A) 73 %; Platelet Count 361 k/uL (150-450); RBC 4.47 m/uL (3.80-5.40); RDW 13.6 % (11.5-15.5); WBC 9.2 k/uL (3.8-10.6)
== END | disposition home or self-care (01) ==
LOC: LABWHC1 10:04
PROVIDERS: ATTEND Family Medicine
DX: R00.2 Palpitations (principal)
CPT/HCPCS: 36415; 85025; 93005

== ENCOUNTER → 2020-04-05 | Outpatient (CLI) | payer MEDICAID ==
--- NOTE | 2020-04-05 11:59 | ECHOF ---
Referral Reason:I20.9 Angina pectoris MEASUREMENTS -------- HEIGHT: 172.7 cm WEIGHT: 75.7 kg BP: 119/67 RVIDd: 2.7 cm (< 3.3) IVSd: 0.8 cm (0.6 - 1.1) LVIDd: 4.7 cm (3.9 - 5.3) LVPWd: 0.9 cm (0.6 - 1.1) IVSs: 1.4 cm LVIDs: 3.0 cm LVPWs: 1.3 cm LA Diam: 2.9 cm (2.7 - 3.8) LAESV Index (A-L): 20.54 ml/m Ao Diam: 3.0 cm (2.0 - 3.7) AV Cusp: 1.9 cm (1.5 - 2.6) MV EXCURSION: 17.440 mm (> 18.000) MV EF SLOPE: 132 mm/s (70 - 150) EPSS: 0.3 cm MV E Richi: 0.95 m/s MV DecT: 148 ms MV A Richi: 0.73 m/s MV E/A Ratio: 1.29 RAP: 5.00 mmHg RVSP: 31.59 mmHg TAPSE: 22.56 mm FINDINGS -------- Sinus rhythm. This was a technically good study. The left ventricular size is normal. Left ventricular wall thickness is normal. Overall left vent ricular systolic function is normal with, an EF between 55 - 60 %. The right ventricle is normal in size. Normal LA size by volume 22+/-6 ml/m2. The right atrium is normal in size. Aneurysmal Interatrial septum. The aortic valve is trileaflet and appears structurally normal. Mild mitral regurgitation is present. Mild tricuspid regurgitation present. Right ventricular systolic pressure is normal at < 35 mmHg. Trace/mild (physiologic) pulmonic regurgitation. The aortic root size is normal. Normal inferior vena cava with normal inspiratory collapse consistent with estimated right atrial pre ssure of 5 mmHg. There is no pericardial effusion. CONCLUSIONS -------- 1. Sinus rhythm. 2. This was a technically good study. 3. The left ventricular size is normal. 4. Left ventricular wall thickness is normal. 5. The right ventricle is normal in size. 6. Normal LA size by volume 22+/-6 ml/m2. 7. The right atrium is normal in size. 8. Aneurysmal Interatrial septum. 9. The aortic valve is trileaflet and appears structurally normal. 10. Mild mitral regurgitation is present. 11. Mild tricuspid regurgitation present. 12. Right ventricular systolic pressure is normal at < 35 mmHg. 13. Trace/mild (physiologic) pulmonic regurgitation. 14. The aortic root size is normal. 15. Normal inferior vena cava with normal inspiratory collapse consistent with estimated right atrial pressure of 5 mmHg. 16. There is no pericardial effusion. EXECUTIVE ASSOCIATE: Lois Retana RDCS
--- NOTE | 2020-04-05 15:32 | ECHOS ---
STRESS ECHOCARDIOGRAM LUMASON: Vial INDICATIONS: Angina. MEDICATIONS: BASELINE HEART RATE: 72 BASELINE BLOOD PRESSURE: 96/62 MAXIMUM HEART RATE: 158 MAXIMUM BLOOD PRESSURE: 154/91 85% MPHR: 144 100% MPHR: 169 METS: 12.1 MAXIMUM STAGE REACHED: 4 TOTAL EXERCISE TIME: 10:30 CLINICAL INFORMATION: Baseline EKG revealed normal sinus rhythm with one isolated PVC. Patient walked on a standard Inocencio protocol for a total duration of 10.5 minutes, achieved a maximal heart rate of about 160 beats per minute which is more than 85% of predicted maximal. She developed fatigue and shortness of breath. Towards peak exercise, she complained of some chest tightness, which seemed very atypical. EKG did not reveal any ST-segment changes to indicate ischemia. By EKG criteria, this is considered as a negative stress test with excellent exercise capacity. There was a lot of baseline artifact, but there is no evidence to suggest any ischemia. There was no significant arrhythmia. This is a negative stress test with excellent exercise capacity. Baseline echo images revealed normal wall motion and wall thickening of all segments. At peak exercise, there was good augmentation of left anterior wall motion and wall thickening of all segments suggesting that there is no evidence of stress-induced ischemia on this study. IMPRESSION: 1. Excellent exercise capacity. Negative stress test by EKG criteria. Patient had transient chest tightness and at peak exercise, which is very atypical, not associated with angina. She achieved well above 85% of predicted maximal heart rate. 2. Normal stress echocardiogram without evidence of ischemia. MMODL / IJN: [id number] /
== END | disposition home or self-care (01) ==
LOC: RADNMMAIN 09:54
PROVIDERS: ATTEND Internal Medicine Interventional Cardiology
DX: I08.8 Other rheumatic multiple valve diseases (principal); R07.9 Chest pain, unspecified
CPT/HCPCS: 93306; 93351

== ENCOUNTER → 2020-05-11 | Outpatient (CLI) | payer MEDICAID ==
--- NOTE | 2020-05-12 08:30 | MM ---
Reason for exam: screening (asymptomatic). Last mammogram was performed 1 year and 3 months ago. History: Patient is postmenopausal and has history of other cancer at age 48. Family history of premenopausal breast cancer in mother at age 37 and breast cancer in sister at age 50. Took hormonal contraceptives for 10 years beginning at age 23. Physical Findings: A clinical breast exam by your physician is recommended on an annual basis and results should be correlated with mammographic findings. MG 3D Screening Mammo W/Cad Bilateral CC and MLO view(s) were taken. Prior study comparison: February 19, 2019, bilateral MG 3d screening mammo w/cad. February 12, 2018, bilateral MG 3d screening mammo w/cad. The breast tissue is heterogeneously dense. This may lower the sensitivity of mammography. Stable benign calcifications. There is no discrete abnormality. No significant changes when compared with prior studies. ASSESSMENT: Benign, BI-RAD 2 RECOMMENDATION: Routine screening mammogram of both breasts in 1 year.
== END | disposition home or self-care (01) ==
LOC: RADMAMWWP 07:02
PROVIDERS: ATTEND Family Medicine
DX: Z12.39 Encounter for other screening for malignant neoplasm of breast (principal)
CPT/HCPCS: 77063; 77067

== ENCOUNTER 2021-02-23 07:59 | Day surgery (SDC) | payer MEDICAID ==
[2021-02-22 08:28] VITALS: BMI 25.2
[~2021-02-23 07:59] MED LIST changes: +LIDOCAINE 1% (10MG/ML) FOR IV START INTRADERMA PRN
[2021-02-23 09:05] VITALS: TEMP 98.1
[2021-02-23] MEDS ORDERED: PROPOFOL 10 MG/ML 20 ML VIAL IV ONE (09:18)
--- NOTE | 2021-02-23 09:34 | P.PCN ---
Date of Procedure: 02/23/21 Procedure(s) Performed: BRIEF HISTORY: Patient is a 50-year-old pleasant female scheduled for an elective colonoscopy as a part of screening for colorectal neoplasia and family history of colon cancer. Her father was diagnosed with colon cancer at age 70. PROCEDURE PERFORMED: Colonoscopy. PREOPERATIVE DIAGNOSIS: Screening for colon cancer/family history of colon cancer. IV sedation per Anesthesia. PROCEDURE: After informed consent was obtained, the patient, was brought into the endoscopy unit. IV sedation was administered by Anesthesia under continuous monitoring. Digital rectal examination was normal. Initially the Olympus CF-160 flexible video colonoscope was then inserted in the rectum, gradually advanced into the cecum without any difficulty. Careful examination was performed as the scope was gradually being withdrawn. Ileocecal valve and the appendiceal orifice were visualized and appeared normal. Prep was excellent. Mucosa of the cecum, ascending colon, transverse colon, descending colon, sigmoid colon, and rectum appeared normal. Retroflexion was performed in the rectum and no lesions were seen. The patient tolerated the procedure well. IMPRESSION: Normal-appearing colon from rectum to cecum with no evidence of colorectal neoplasia. RECOMMENDATIONS: Findings of this examination were discussed with the patient as well as a family. She was advised to have a repeat screening colonoscopy every 5 years because of the family history of colon cancer..
[2021-02-23 09:40] VITALS: PULSE 67
[2021-02-23 09:56] VITALS: BP 113/79; RESP 18
== END 2021-02-23 10:20 | disposition home or self-care (01) ==
LOC: ORWHC2ENDO 07:59
PROVIDERS: ATTEND Internal Medicine Gastroenterology
DX: Z12.11 Encounter for screening for malignant neoplasm of colon (principal); Z80.0 Family history of malignant neoplasm of digestive organs; M79.7 Fibromyalgia; F41.9 Anxiety disorder, unspecified; F32.9 Major depressive disorder, single episode, unspecified; Z98.890 Other specified postprocedural states; Z79.890 Hormone replacement therapy; Z79.899 Other long term (current) drug therapy; Z79.1 Long term (current) use of non-steroidal anti-inflammatories (NSAID)
CPT/HCPCS: J2704; G0105; 45378

== ENCOUNTER → 2021-05-13 | Outpatient (CLI) | payer MEDICAID ==
--- NOTE | 2021-05-17 10:34 | MM ---
Reason for exam: screening (asymptomatic). Last mammogram was performed 1 year ago. History: Patient is postmenopausal and has history of other cancer at age 48. Family history of breast cancer in aunt, breast cancer in cousin, premenopausal breast cancer in mother at age 37, and breast cancer in sister at age 50. Took hormonal contraceptives for 10 years beginning at age 23. Physical Findings: A clinical breast exam by your physician is recommended on an annual basis and results should be correlated with mammographic findings. MG 3D Screening Mammo W/Cad Bilateral CC and MLO view(s) were taken. Prior study comparison: May 11, 2020, bilateral MG 3d screening mammo w/cad. February 19, 2019, bilateral MG 3d screening mammo w/cad. The breast tissue is heterogeneously dense. This may lower the sensitivity of mammography. Central anterior right CC asymmetric density is more defined and incompletely disperses on 3D. ASSESSMENT: Incomplete: need additional imaging evaluation, BI-RAD 0 RECOMMENDATION: Special view mammogram of the right breast. (3D) Ultrasound of the left breast. (lateral palpable and pain) [facility] will attempt to contact patient to return for supplemental views and ultrasound.
== END | disposition home or self-care (01) ==
LOC: RADMAMWWP 07:46
PROVIDERS: ATTEND Family Medicine
DX: Z12.31 Encounter for screening mammogram for malignant neoplasm of breast (principal); Z80.3 Family history of malignant neoplasm of breast
CPT/HCPCS: 77063; 77067

== ENCOUNTER → 2021-05-25 | Outpatient (CLI) | payer MEDICAID | END | disposition home or self-care (01) | DX: R92.8 Other abnormal and inconclusive findings on diagnostic imaging of breast (principal) | CPT/HCPCS: 77061; 77065 ==

== ENCOUNTER → 2021-07-04 | Outpatient (CLI) | payer MEDICAID ==
--- NOTE | 2021-07-04 08:58 | XR ---
EXAMINATION TYPE: XR chest 2V DATE OF EXAM: 07/04/2021 COMPARISON: 03/19/2018 HISTORY: 51-year-old female R06.00 TECHNIQUE: Frontal and lateral views FINDINGS: The cardiomediastinal silhouette, aorta, and pulmonary vasculature are within normal limits. Lungs an d pleural spaces are clear. IMPRESSION: No acute cardiopulmonary process.
== END | disposition home or self-care (01) ==
LOC: RADXRMAIN 08:06
PROVIDERS: ATTEND Family Medicine
DX: R06.00 Dyspnea, unspecified (principal)
CPT/HCPCS: 71046

== ENCOUNTER → 2021-08-11 | Outpatient (CLI) | payer MEDICAID ==
--- NOTE | 2021-08-11 08:48 | CT ---
EXAMINATION TYPE: CT chest w con DATE OF EXAM: 08/11/2021 COMPARISON: 09/19/2018 HISTORY: dyspnea CT DLP: 507 mGycm Automated exposure control for dose reduction was used. CONTRAST: CT scan of the chest is performed with IV Contrast, patient injected with 100 mL of Isovue 300. FINDINGS: LUNGS: The lungs are grossly clear, there is no concerning parenchymal mass or nodule identified. T here is no pleural effusion or pneumothorax seen. The tracheobronchial tree is patent. MEDIASTINUM: There are no greater than 1 cm hilar or mediastinal lymph nodes. No pericardial effusi on is seen. Thoracic aorta is of normal caliber. The heart is not enlarged. UPPER ABDOMEN: No significant abnormality appreciated. OTHER: No additional significant abnormality is seen. IMPRESSION: No distinct abnormality appreciated.
--- NOTE | 2021-08-11 12:26 | FL ---
Sniff test HISTORY:J98.6 Disorders of diaphragm shortness of breath and chest pain Patient was evaluated in real-time fluoroscopy. Diaphragmatic excursion is normal bilaterally. Right hemidiaphragm mildly elevated relation to the left. Single fluoroscopic image obtained, 28 seconds fluoroscopy time supplied. impression: Normal diaphragmatic excursion
== END | disposition home or self-care (01) ==
LOC: RADCTMAIN 08:07
PROVIDERS: ATTEND Internal Medicine
DX: J98.6 Disorders of diaphragm (principal); R06.09 Other forms of dyspnea
CPT/HCPCS: 76000; 71260; Q9967

== ENCOUNTER → 2022-06-07 | Outpatient (CLI) | payer BC ==
--- NOTE | 2022-06-09 12:44 | MM ---
Reason for Exam: Screening (asymptomatic). Last mammogram was performed 1 year(s) and 1 month(s) ago. Patient History: Menarche at age 11. First Full-Term at age 17. Other cancer, age 48. Hormonal Contraceptives for 10 years from age 23 until age 35. Maternal cousin had breast cancer, age 35. Maternal aunt had breast cancer, age 35. Sister had breast cancer, age 50. Mother had breast cancer, age 37. Mother tested for BRCA1 outcome was negative. Risk Values: Rosalina 5 year model risk: 5.4%. NCI Lifetime model risk: 34.0%. Prior Study Comparison: 05/11/2020 Bilateral Screening Mammogram, [facility]. 05/13/2021 Bilateral Screening Mammogram, [facility]. 05/25/2021 Right Diagnostic Mammogram, [facility]. Tissue Density: The breast tissue is heterogeneously dense. This may lower the sensitivity of mammography. Findings: Analyzed By CAD. There is a new suspicious group of heterogenous microcalcifications upper outer left breast 10 cm from the nipple measuring 3.7 x 2.2 x 3.0 cm. Biopsy of these calcifications is recommended. No additional microcalcifications are seen within either breast. There is also an 8 mm nodule left 12:00 position 10 cm from the nipple. Asymmetric distortion 12:00 right breast. Additional views are recommended. Overall Assessment: Incomplete: need additional imaging evaluation, BI-RAD 0 Management: Diagnostic Mammogram of both breasts. Diagnostic Breast Ultrasound of the left breast. A clinical breast exam by your physician is recommended on an annual basis and results should be correlated with mammographic findings. Electronically signed and approved by: Moiz Fields M.D. Radiologis
== END | disposition home or self-care (01) ==
LOC: RADMAMWWP 08:00
PROVIDERS: ATTEND Family Medicine
DX: Z12.31 Encounter for screening mammogram for malignant neoplasm of breast (principal); Z80.3 Family history of malignant neoplasm of breast
CPT/HCPCS: 77063; 77067

== ENCOUNTER → 2022-06-12 | Outpatient (CLI) | payer BC ==
--- NOTE | 2022-06-12 11:05 | USB ---
Reason for Exam: Additional evaluation requested from abnormal screening. Patient History: Menarche at age 11. First Full-Term at age 17. Other cancer, age 48. Hormonal Contraceptives for 10 years from age 23 until age 35. Maternal cousin had breast cancer, age 35. Maternal aunt had breast cancer, age 35. Sister had breast cancer, age 50. Mother had breast cancer, age 37. Mother tested for BRCA1 outcome was negative. Risk Values: Rosalina 5 year model risk: 5.4%. NCI Lifetime model risk: 34.0%. Prior Study Comparison: 05/13/2021 Bilateral Screening Mammogram, [facility]. 05/25/2021 Right Diagnostic Mammogram, [facility]. 06/07/2022 Bilateral MG 3D screening mammo w/cad, [facility]. Findings: The upper section of the breast of the right breast, the lower section of the breast of the left breast, the axilla of both breasts and the retroareolar of both breasts were scanned. Real-time linear array sonography is performed in the bilateral breasts. Attention to the upper outer right breast mammographic region is performed. No suspicious spiculated or lobulated mass is identified by ultrasound. Note is made of a benign-appearing simple cysts right breast 11:00 position 4 cm nipple measuring 0.4 x 0.4 x 0.3 cm. Attention is paid to the 6:00 posterior position 10 cm from the nipple. This area corresponds to a simple benign cyst measuring 0.6 x 0.5 x 0.8 cm correlating with the mammographic findings. Attention is paid to the upper outer left breast region. This area corresponds to an area of pain within the left breast. No distinct suspicious ultrasound abnormality is evident. This area remains suspicious based on mammographic findings and stereotactic core biopsy left breast is recommended. There is a lymph node in the left axillary region with the cortex approaching the upper limits of normal measuring 0.275 cm, normal less than 0.3 cm. Overall Assessment: Suspicious, BI-RAD 4 Management: Stereotactic Core Biopsy of the left breast. Diagnostic Mammogram of the right breast in 6 months. A clinical breast exam by your physician is recommended on an annual basis and results should be correlated with mammographic findings. Electronically signed and approved by: Yeyo Castaneda D.O. Radiologis
--- NOTE | 2022-06-12 15:49 | MM ---
Reason for Exam: Additional evaluation requested from abnormal screening. Last screening mammogram was performed less than 1 month ago. Patient History: Menarche at age 11. First Full-Term at age 17. Other cancer, age 48. Hormonal Contraceptives for 10 years from age 23 until age 35. Maternal cousin had breast cancer, age 35. Maternal aunt had breast cancer, age 35. Sister had breast cancer, age 50. Mother had breast cancer, age 37. Mother tested for BRCA1 outcome was negative. Risk Values: Rosalina 5 year model risk: 5.4%. NCI Lifetime model risk: 34.0%. Prior Study Comparison: 05/25/2021 Right Diagnostic Mammogram, [facility]. 06/07/2022 Bilateral MG 3D screening mammo w/cad, [facility]. Tissue Density: The breast tissue is heterogeneously dense. This may lower the sensitivity of mammography. Findings: Analyzed By CAD. Right breast: Under compression the distortion within the upper anterior to mid right breast appears to disperse normally. No underlying architectural distortion or suspicious spiculated mass is evident. Right medial lateral view appears unremarkable. Left breast: Multiple calcifications are within the upper left breast and are normal change from 2020. This area is indistinct on the correlating ultrasound. Stereotactic core biopsy is recommended. A new rounded density within the left posterior breast measuring 8 mm 10 cm the nipple corresponds to a benign cyst on ultrasound. Overall Assessment: Suspicious, BI-RAD 4 Management: Stereotactic Core Biopsy of the left breast. Diagnostic Mammogram of the right breast in 6 months. A clinical breast exam by your physician is recommended on an annual basis and results should be correlated with mammographic findings. This exam should not preclude additional follow-up of suspicious palpable abnormalities. Results were given to the patient verbally at the time of exam. Patient should continue monthly self breast exam. Additional workup for suspicious clinical findings would be recommended. Electronically signed and approved by: Yeyo Castaneda D.O. Radiologis
== END | disposition home or self-care (01) ==
LOC: RADMAMWWP 09:22
PROVIDERS: ATTEND Family Medicine
DX: R92.8 Other abnormal and inconclusive findings on diagnostic imaging of breast (principal); Z80.3 Family history of malignant neoplasm of breast
CPT/HCPCS: 77062; 77066

== ENCOUNTER → 2022-07-06 | Outpatient (CLI) | payer BC ==
--- NOTE | 2022-07-06 12:43 | P.PCN ---
Date of Procedure: 07/06/22 Preoperative Diagnosis: Microcalcifications of concern upper outer quadrant left breast Postoperative Diagnosis: Same Procedure(s) Performed: Left breast stereotactic core biopsy Anesthesia: local Surgeon: Gricelda Lane Pathology: other (Left breast tissue with microcalcifications of concern) Condition: stable Disposition: same day Indications for Procedure: No suspicious group of heterogeneous microcalcifications upper Outer quadrant left breast approximately 3.7 x 3 cm in size Operative Findings: Microcalcifications of concern noted in the core biopsy specimen Description of Procedure: Mojgan is a 52-year-old white female who on screening mammogram performed on was noted to have microcalcifications of concern in her left breast. Additionally an area of distortion was noted in the right breast which on further workup was felt to be a benign BIRADS 3 on the right. Left breast was recommended for Surgitek to core biopsy. The patient was seen preprocedure and risk and benefits of the procedure were discussed with the patient as well as examination being performed. The x-rays were reviewed with our radiologist and the recommendation was for biopsy of 2 areas of the calcifications if possible. Risk of the procedure include but were not limited to bleeding, infection, reaction to the anesthetic. Alternatives such as watchful waiting a resection of the operating room were discussed but not recommended. The patient was taken to the stereotactic core biopsy room. She was positioned prone on the lo-rad table. A legal examiner film was obtained. The area of concern was identified. The more anterior calcifications were approached initially. The lesion was targeted. The breast was prepped using Betadine. 15 mL of 1% lidocaine were used to anesthetize the area of concern. A 9-gauge vacuum- assisted core rotating biopsy needle was driven to the correct coordinates. A prefire film was obtained. The needle was noted to be in the correct location. The needle was fired. A post-fire film was obtained. The needle was noted to be in the correct location. 13 core specimens were obtained. Radiograph of the specimen revealed microcalcifications of concern were removed. A secure jan Top-hat clip was placed. The correct location of the clip was confirmed on a 2- D mammogram postprocedure. The patient post procedure began to fill dizzy and lightheaded. She did have a small hematoma at the biopsy site which was stable. She does have a history of anxiety and it was felt that a second biopsy of the area should be postponed at this time. Specimen was sent to pathology. The patient was stable and feeling well and discharged home.
== END ==
LOC: WWCWWP 06:52
PROVIDERS: ATTEND Surgery
DX: R92.0 Mammographic microcalcification found on diagnostic imaging of breast (principal)

== ENCOUNTER → 2022-08-15 | Outpatient (CLI) | payer BC ==
--- NOTE | 2022-08-15 08:38 | US ---
EXAMINATION TYPE: US pelvis complete transvag DATE OF EXAM: 08/15/2022 COMPARISON: NONE CLINICAL HISTORY: R14.0 ABDOMINAL DISTENTION. Recent diagnosis of breast cancer. TECHNIQUE: Transvaginal (TV) and Transabdominal (TA) . Transabdominal sonographic images of the pel vis were acquired. Transvaginal sonographic images were medically necessary to better assess the fol lowing anatomy: ovaries. Date of LMP: Ablation 10 years ago. EXAM MEASUREMENTS: Uterus: 9.6 x 3.9 x 5.7 cm Endometrial Stripe: 0.5 cm Right Ovary: not visualized Left Ovary: 2.4 x 2.1 x 1.7 cm 1. Uterus: Anteverted heterogeneous echotexture 2. Endometrium: wnl 3. Right Ovary: not visualized 4. Left Ovary: wnl 5. Bilateral Adnexa: wnl 6. Posterior cul-de-sac: no free fluid IMPRESSION: No significant abnormality
== END | disposition home or self-care (01) ==
LOC: RADUSWWP 06:50
PROVIDERS: ATTEND Family Medicine
DX: R14.0 Abdominal distension (gaseous) (principal)
CPT/HCPCS: 76830; 76856

== ENCOUNTER → 2022-08-18 | Outpatient (CLI) | payer BC ==
[2022-08-18 13:02] VITALS: BP 103/73; PULSE 85; RESP 16; TEMP 98.7
--- NOTE | 2022-08-18 13:37 | P.PN ---
Subjective Progress Note Date: 08/18/22 Principal diagnosis: DCIS left breast DCIS left breast Mojgan is a 52-year-old white female who was initially seen in consultation for Dr. Layton regarding a mammographic abnormality in her left breast. The area of concern spans about 3.7 cm and she was recommended to undergo a stereotactic [place] [id number]. Pathology revealed high-grade DCIS with comedonecrosis. This is ER/DE positive. The patient was initially going to have 2 areas of the calcifications sampled however secondary to anxiety only one area more anterior portion was sampled. The calcifications appear to be similar throughout this region. The patient has a very strong family history of cancer, and has determined that she would like to have bilateral mastectomies without reconstruction at this time. Initially she was considering BENTLEY reconstruction, we have called the patient after making contact with [place], and [facility] regarding the BENTLEY reconstructive procedure. We have sent referral information to [facility]; [phone]; as well as Dr. Vazquez. We have contacted [facility] and are waiting to hear back, and told the patient if she is interested she can contact them. At this time she is not interested in [facility] and has decided against reconstruction. Caffeine: 2 cups per day Nicotine: None Chocolate: Daily Hormones: None, control pills 10 years. It 30 years ago Family history: Mother: at 47 of breast cancer Maternal aunt: Bilateral breast cancer Maternal cousin: Bilateral breast cancer Sister: Bilateral breast cancer 52 Father: Colon cancer, from lung metastases at 76 Patient: Basal cell cancer Removal history: Menarche: 13 M2, breast-fed: Yes I'll 4, age at first live : 17 Menopause: Ablation several years ago. She went through menopause proximal lingular year ago Surgical history: Uterine ablation Colonoscopies Skin cancer removed left shoulder Medical history: Hypothyroid Prozac for depression, fibromyalgia related Social history: Nicotine: Negative Alcohol: Stopped 2 years ago history drinks several a day Drugs: Negative Review of systems: Anesthesia: Spatz HEENT: Negative Breasts: As above Cardiovascular: Chest pain or shortness of breath at times Breast history: Shortness of breath at times GI: Negative : Postmenopausal Musculoskeletal: Fibromyalgia Integument: Basal cell cancer left forearm, shoulder, chest Neurological: Negative Psychiatric: Anxiety/depression Endocrine: Hypothyroid Hematologic: Negative Objective - Vital Signs Vital signs: Vital Signs Temp 98.7 F 08/18/22 13:00 Pulse 85 08/18/22 13:00 Resp 16 08/18/22 13:00 BP 103/73 08/18/22 13:00 Pulse Ox 95 08/18/22 13:00 FiO2 Intake & Output 08/17/22 08/18/22 08/18/22 18:59 06:59 18:59 Weight 80.286 kg - Constitutional General appearance: Present: cooperative - EENT Eyes: Present: EOMI ENT: Present: hearing grossly normal - Neck Neck: Present: normal ROM - Respiratory Respiratory: bilateral: CTA - Cardiovascular Rhythm: regular Heart sounds: normal: S1, S2 - Gastrointestinal General gastrointestinal: Present: soft - Integumentary Integumentary: Present: normal turgor - Musculoskeletal Musculoskeletal: Present: gait normal - Psychiatric Psychiatric: Present: A&O x's 3, appropriate affect, intact judgment & insight - Additional findings Additional findings: Breast examination: BRA: 38G Inspection: Bilateral grade 2 ptosis Palpation: Right breast: Multiple positional exam fibrocystic changes no dominant masses or nodules of concern Right axilla: No adenopathy of concern Left breast: Post-stereotactic biopsy changes, small hematoma in the area of biopsy with ecchymosis Left axilla: No adenopathy of concern Assessment and Plan Assessment: Assessment and Plan Assessment: Impression: DCIS left breast area spans approximately 3.7 x 3 cm in size Strong family history of cancer Fibromyalgia Hypothyroid Anxiety/depression Primary a personal history of basal cell carcinoma Plan: Patient would like to have bilateral mastectomy with left sentinel node biopsy possible axillary node dissection she is not interested in reconstruction Risk and benefits of surgical procedures discussed with the patient in detail. surgical options include lumpectomy plus or minus radiation, mastectomy plus or minus reconstruction, sentinel node biopsy, possible axillary node dissection. Risk include but are not limited to bleeding, infection, reaction to the anesthetic. If margins were to be positive additional tissue may have to be removed. Additionally the sentinel node biopsy were performed risk include but are not limited to bleeding, infection, reaction to the anesthetic. The possibility of numbness of the inner arm, lymphedema, injury to the thoracodorsal or long thoracic nerves which could result in bleeding and scapula. The patient understands these and would like to have the surgery done as soon as possible.
== END | disposition home or self-care (01) ==
LOC: WWCWWP 12:51
PROVIDERS: ATTEND Surgery
DX: Z53.9 Procedure and treatment not carried out, unspecified reason (principal)

== ENCOUNTER 2022-08-29 08:50 | Observation (INO) | payer BC ==
[2022-08-24 14:11] VITALS: BMI 26.9
[~2022-08-29 08:50] MED LIST changes: +DEXAMETHASONE SOD PHOSPHATE 4 MG/ML 1 ML VIAL IV ONE; +HEPARIN SODIUM,PORCINE/PF 5,000 UNIT/0.5 ML SYRINGE SQ PRN; -LACTATED RINGERS 1,000 ML IV SCH; -LIDOCAINE 1% (10MG/ML) FOR IV START INTRADERMA PRN; +ONDANSETRON 4 MG/2 ML VIAL IVP ONE; +Pre Op ABX Message 1 EACH MISC MISCELLANE ONE
[2022-08-29] MEDS ORDERED: ALPRAZolam 0.5 MG TAB ONE (10:05)
[2022-08-29] MEDS: LACTATED RINGERS 1,000 ML IV SCH (10:36)
[2022-08-29] MEDS ORDERED: MIDAZOLAM 2 MG/2 ML VIAL IVP ONE ×2 (10:37)
--- NOTE | 2022-08-29 11:07 | P.NAPBC ---
NAPBC Queries - NAPBC Queries Was patient's case review presented at [facility] tumor board? If no, comment.: Yes Was patient's pathology reviewed at [facility]? If no, comment.: Yes Was breast conservation surgery offered? If no, comment.: Yes Was sentinel node biopsy offered? If no, comment.: Yes Was diagnosis confirmed by percutaneous core biopsy? If no, comment.: Yes Is patient mastectomy patient?: Yes Was a preop referral to reconstructive surgeon offered?: Yes Clinical Stage: stage 0
[2022-08-29] MEDS ORDERED: SODIUM CHLORIDE 0.9% 50 ML with ceFAZolin 2,000 MG IV ONE ×2 (11:31)
--- NOTE | 2022-08-29 12:52 | NM ---
EXAMINATION TYPE: NM sentinel node injection DATE OF EXAM: 08/29/2022 COMPARISON: Mammogram dated 07/06/2022 HISTORY: Left breast cancer TECHNIQUE AND FINDINGS: The procedure of sentinel lymph node injection was explained to the patient. The benefits, alternatives, and risks were discussed. An informed consent was then obtained. Overlying skin is cleaned with sterile alcohol. Following this, 468 uCi Tc99m Tilmanocept was inject ed in the upper outer aspect of the left nipple intradermally. The patient tolerated the procedure well without any immediate complication. The patient was kept in the radiology department for short stay after the procedure and then taken to surgery for surgical p rocedure what is presumed intraoperative gamma probe will be used for sentinel lymph node detection. IMPRESSION: Left breast radiotracer injection for sentinel node localization as above.
[2022-08-29] MEDS ORDERED: LACTATED RINGERS 1,000 ML IV ONE (14:06)
--- NOTE | 2022-08-29 16:31 | P.OP ---
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 Postoperative Diagnosis: Same Procedure(s) Performed: Bilateral mastectomy with left sentinel node biopsy Anesthesia: MARISA Surgeon: Gricelda aLne Estimated Blood Loss (ml): 25 IV fluids (ml): 1,500 Pathology: other (Bilateral breast, left sentinel lymph node) Condition: stable Disposition: floor Indications for Procedure: Left breast ductal carcinoma in situ extensive areas of suspicion, strong family history of breast cancer Operative Findings: Dense breast Description of Procedure: The patient is a 52-year-old white female who was diagnosed on stereotactic core biopsy with left breast ductal carcinoma in situ. She has a strong family history of breast cancer and wishes to have bilateral mastectomy without reconstruction. Risks and benefits of procedure were discussed with the patient and she understands and wishes to proceed. Initially an injection of radioactive tracer was placed in the left periareolar region in the radiology Department secondary to the concern that the lesion noted on mammogram may have an invasive component. She was brought to the operative suite. Following induction of anesthesia the axilla was interrogated and noted to be positive for radioactivity. Both breasts were prepped and draped in a sterile fashion. The left side was approached initially. A superior and inferior skin flap were developed. The dissection was performed in the anterior mammary fascial plane. This was dissected down to the chest wall. The breast was brought from medial to lateral off the pectoralis muscle being careful to maintain hemostasis using the electrocautery device as well as the Harmonic scalpel. The dissection was performed to the axilla. The breast was removed. The axilla was evaluated using the neoprobe. An area of increased radioactivity was identified. This was grasped using an Allis clamp. The lymph node was removed. The 10 second count was 32,506. The background count was 26. Some additional axillary tissue was removed. No other nodes which were palpable of concern were noted. The mastectomy site as well as the axilla was well irrigated. After we were assured that hemostasis was attained 2 DEANGELO drains were placed. The breasts were marked with the superior suture which was short and the lateral suture which was long. This was sent to x-ray for radiograph revealed that the calcifications as well as the prior clip done at biopsy were removed. Additional skin was removed from the superior and inferior flaps to make the mastectomy closure tighter. The deep tissues were closed using interrupted 3-0 Vicryl sutures. This was followed by 3-0 running subcutaneous suture. 4-0 Monocryl subcuticular suture was placed. The drains were secured using nylon suture. Bryan were placed. Instruments and gowns were changed. The right breast was approached. Superior and inferior flaps were developed. The dissection was performed down to the pectoralis muscle. The breast was removed from medial to lateral using the electrocautery device and harmonic scalpel to maintain hemostasis. Dissection was taken off the pectoralis muscle. The breast was dissected laterally and at the area of the axilla of the tissue was transected using the Harmonic scalpel. A suture was placed superiorly, and a long suture was placed laterally. Following this the wound was well irrigated. After we were assured that hemostasis was attained Surgicel in powder form was placed. 2 DEANGELO drains were placed. The flaps were brought together using 3-0 Vicryl interrupted sutures; 3-0 Vicryl running subcutaneous sutures and 4-0 Monocryl subcuticular suture. Bryan were placed. Prior to closure of the flaps additional tissue from the flaps was removed so that the closure would be tighter. All instrument and sponge counts were correct at the end of the case. All instrument and sponge counts were correct at the end of the case. The patient tolerated the procedure in stable condition.
[2022-08-29] MEDS ORDERED: MELATONIN 3 MG TABLET PO PRN (16:32)
[2022-08-29] MEDS ORDERED: NALOXONE 0.4 MG/ML 1 ML VIAL IV PRN (16:32)
[2022-08-29] MEDS: HYDROmorphone 0.5 MG/0.5 ML SYRINGE IVP PRN ×2 (16:54→17:03)
[2022-08-29] MEDS ORDERED: diphenhydrAMINE 50 MG/ML 1 ML VIAL IVP ONE (17:09)
[2022-08-29] MEDS: DEXTROSE 5%-0.45% NACL 1,000 ML IV SCH (18:11)
[2022-08-29] MEDS: ONDANSETRON 4 MG/2 ML VIAL IVP PRN (20:25)
[2022-08-29] MEDS: HYDROcodone/APAP 5-325MG 1 EACH TAB PO PRN (22:09)
[2022-08-29] MEDS: HEPARIN SODIUM,PORCINE/PF 5,000 UNIT/0.5 ML SYRINGE SQ SCH (22:10)
[2022-08-29] MEDS: HYDROmorphone 1 MG/ML 1 ML SYRINGE IVP PRN (23:16)
[2022-08-30] MEDS: LACTATED RINGERS 1,000 ML IV SCH (02:16)
[2022-08-30] MEDS: HYDROmorphone 1 MG/ML 1 ML SYRINGE IVP PRN (03:11)
[2022-08-30] MEDS: DEXTROSE 5%-0.45% NACL 1,000 ML IV SCH ×2 (03:13→14:23)
[2022-08-30] MEDS: HYDROcodone/APAP 5-325MG 1 EACH TAB PO PRN ×3 (05:32→14:07)
[2022-08-30] MEDS: ONDANSETRON 4 MG/2 ML VIAL IVP PRN (07:46)
[2022-08-30 07:50] LABS: Basophils % (A) 0 %; Eosinophils # (A) 0.1 k/uL (0-0.7); Eosinophils % (A) 1 %; HCT 35.5 % (34.0-46.0); HGB 11.6 gm/dL (11.4-16.0); Lymphocytes # (A) 2.7 k/uL (1.0-4.8); Lymphocytes % (A) 21 %; MCH 29.3 pg (25.0-35.0); MCHC 32.8 g/dL (31.0-37.0); MCV 89.2 fL (80.0-100.0); Mean Platelet Volume 7.4; Monocytes # (A) 0.8 k/uL (0-1.0); Monocytes % (A) 6 %; Neutrophils # (A) 9.2 k/uL (1.3-7.7); Neutrophils % (A) 71 %; Platelet Count 339 k/uL (150-450); RBC 3.98 m/uL (3.80-5.40); RDW 13.7 % (11.5-15.5); WBC 13.1 k/uL (3.8-10.6)
[2022-08-30] MEDS: HEPARIN SODIUM,PORCINE/PF 5,000 UNIT/0.5 ML SYRINGE SQ SCH ×2 (07:59→17:15)
--- NOTE | 2022-08-30 12:04 | MM ---
Electronically signed and approved by: Anam Wu M.D. Radiologist
[2022-08-30] MEDS ORDERED: METOCLOPRAMIDE 5 MG/ML 2 ML VIAL IVP PRN (12:07)
--- NOTE | 2022-08-30 12:08 | P.PN ---
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 She postoperatively is doing well except she has had nausea and been unable to eat. Repeat blood cell count 13.1, hemoglobin 11.6. DEANGELO output has been serous. DEANGELO right side: 20 mL DEANGELO left side: 30 mL Objective - Vital Signs Vital signs: Vital Signs Temp 97.9 F 08/30/22 08:00 Pulse 80 08/30/22 08:00 Resp 16 08/30/22 08:00 BP 154/83 08/30/22 08:00 Pulse Ox 94 L 08/30/22 08:00 FiO2 Intake & Output 08/29/22 08/30/22 08/30/22 18:59 06:59 18:59 Intake Total 1900 Output Total 825 45 50 Balance 1075 -45 -50 Weight 81.6 kg Intake: IV 1900 Output: Drainage 45 50 Left Breast 20 30 Right Breast 25 20 Urine 800 Estimated Blood Loss 25 Other: Voiding Method External Catheter Toilet # Voids 1 - Constitutional General appearance: Present: cooperative - EENT Eyes: Present: EOMI ENT: Present: hearing grossly normal - Neck Neck: Present: normal ROM - Respiratory Respiratory: bilateral: CTA - Cardiovascular Rhythm: regular Heart sounds: normal: S1, S2 - Integumentary Integumentary Comment(s): Incision clean and dry bilaterally DEANGELO right side axillary drain no output Drain under the flap 20 mL serous Left DEANGELO drain axilla minimal Under the flap 30 mL serous Dressing changed. - Labs CBC & Chem 7: 08/30/22 07:00 Labs: Abnormal Lab Results - Last 24 Hours (Table) 08/30/22 Range/Units 07:00 WBC 13.1 H (3.8-10.6) k/uL Neutrophils # 9.2 H (1.3-7.7) k/uL Assessment and Plan Assessment: Impression: Patient doing well postoperative bilateral mastectomies with left sentinel node biopsy postop day #1. Patient has had some nausea and has not yet been able to eat Plan: Patient is not going to be discharged secondary to the nausea at this time. The axillary DEANGELO drain on the right has been removed Patient's taught drain care Probable discharge home tomorrow unless patient feels better by this evening and can be discharged this evening Cc: Dr. Layton
[2022-08-30] MEDS ORDERED: FLUoxetine HCL 20 MG CAP PO SCH (13:15)
[2022-08-30] MEDS ORDERED: ASCORBIC ACID 500 MG TAB PO SCH (13:15)
[2022-08-30] MEDS ORDERED: LEVOTHYROXINE 25 MCG TAB PO SCH (13:15)
--- NOTE | 2022-08-30 13:52 | P.CONS ---
History of Present Illness - Reason for Consult Consult date: 08/30/22 Medical management postop bilateral mastectomy - History of Present Illness This is a 52-year-old female was recently admitted to surgery Dr. Jordan Iqbal and is status post bilateral mastectomies with left sentinel node biopsy and is being closely monitored. Patient does follow with Dr. Pond in the outpatient setting with a past medical history of breast cancer, fibromyalgia, thyroid disorder, history of migraines, anxiety and depression. Patient reports she is compliant with her medications and did see Dr. Layton for presurgical clearance. Patient was evaluated by Dr. Jordan Iqbal at the bedside today with one drain removed and 3 remaining with serous fluid noted. Patient having increased nausea and inability to the tolerate oral intake and will continue Zofran and Reglan as well. Possibly secondary to anesthesia and IV narcotics. Patient did take the [place] and continues to report headache. Patient does normally take Neurontin at home and will resume. Will resume thyroid medication as well. Patient reports to being up and walking and pain is somewhat controlled although with the nausea making it worse. Patient reports she has not eaten in almost 2 days and is maintained on gentle IV hydration. Labs this morning reveal mildly elevated leukocytosis with 13.1 WBC and hemoglobin is stable at 11.6. Vital signs are stable patient is afebrile and patient is 94- 96% on room air. Continues on IV fluids at 100 mL per hour of D5 half-normal saline. Review Of Systems: Constitutional: No fever, no chills, no night sweats. No weight change. No weakness, fatigue or lethargy. No daytime sleepiness. EENT: No headache. No blurred vision or double vision, no loss of vision. No loss of Hearing, no ringing in the ears, no dizziness. No nasal drainage or congestion. No epistaxis. No sore throat. Lungs: No shortness of breath, cough, no sputum production. No wheezing. Cardiovascular: No chest pain, no lower extremity edema. No palpitations. No paroxysmal nocturnal dyspnea. No orthopnea. No lightheadedness or dizziness. No syncopal episodes. Abdominal: No abdominal pain. Reports nausea, reports vomiting once this morning. No diarrhea. No constipation. No bloody or tarry stools.. reports loss of appetite. Reports belching with no bowel movement or gas yet Genitourinary: No dysuria, increased frequency, urgency. No urinary retention. Musculoskeletal: No myalgias. No muscle weakness, no gait dysfunction, no frequent falls. No back pain. No neck pain. Integumentary: No wounds, no lesions. No rash or pruritus. No unusual bruising. No change in hair or nails. Reports tenderness on bilateral breasts sites Neurologic: No aphasia. No facial droop. No change in mentation. No head injury. No headache. No paralysis. No paresthesia. Psychiatric: No depression. No anxiety. No mood swings. Endocrine: No abnormal blood sugars. No weight change. No excessive sweating or thirst. No cold intolerance. PHYSICAL EXAMINATION: GENERAL: The patient is alert and oriented x4, Well developed, well nourished. HEENT: Pupils are round and equally reacting to light. EOMI. no scleral icterus. No conjunctival pallor. Normocephalic, atraumatic. No pharyngeal erythema. No thyromegaly. CARDIOVASCULAR: S1 and S2 muffled PULMONARY: diminished breath sounds bilaterally with no wheezing or rhonchi noted. ABDOMEN: soft. Nontender on exam. non-distended, normoactive bowel sounds. No palpable organomegaly. MUSCULOSKELETAL: No joint swelling or deformity. EXTREMITIES: No cyanosis, clubbing, or pedal edema. NEUROLOGICAL: Gross neurological examination did not reveal any focal deficits. Diffuse weakness SKIN: No rashes. Postop surgical site dry and intact and dressing was changed by Dr. Jordan Iqbal at bedside this morning with 3 drain tubes noted, one was removed, serous drainage noted Assessment: Status post bilateral mastectomy with left sentinel node biopsy, postop day 1 Left breast ductal carcinoma in situ Nausea with vomiting postoperatively most likely secondary to anesthesia and IV pain medications Leukocytosis secondary to above Fibromyalgia history Hypothyroidism History of migraines History of anxiety/depression GI prophylaxis DVT prophylaxis Full code Plan: Recommend to continue with current medications and management per surgery services. patient is postop bilateral mastectomy with left sentinel mode biopsy with Dr. Jordan Iqbal. Patient with surgical dressings changed and currently dry and intact and redressed and Torsten wrapped by Dr. Jordan Iqbal at bedside by herself. One drain was removed and patient will likely continue with 2 drains on discharge with close outpatient follow-up and Dr. Jordan Iqbal's office this week. WBC mildly elevated at 13.1 and hemoglobin is stable. Patient is afebrile denies chest pain or shortness of breath. Patient does have some chest wall discomfort at the surgical site which is to be expected. Patient with a incentive spirometer at the bedside and encourage the patient to continue using at least 10 times every hour while awake. Patient is maintained on gentle IV hydration and has Zofran as needed and will add Reglan as well. Encouraged oral intake and possibly staying overnight for observation to monitor pain management along with tolerance to diet. Patient is not currently tolerating anything and has been nauseated and did have vomiting this morning. Possible complication to anesthesia along with IV pain medications. Will resume home medications and continue to monitor and follow along closely with surgery during hospitalization. Thank you kindly for this consultation. The impression and plan of care has been dictated by Gosia Cruz, nurse candido ashby as directed. Dr. Morris MD I have performed a history and examination and MDM of this patient, discussed the same with the dictator, and agree with the dictator's assessment and plan a s written ,documented as a scribe. Based on total visit time, I have performed more than 50% of the visit. Any additional findings or plans will be noted. Past Medical History Past Medical History: Cancer, Fibromyalgia, Thyroid Disorder Additional Past Medical History / Comment(s): herniated discs, skin cancer, hx migraines, breast cancer History of Any Multi-Drug Resistant Organisms: None Reported Past Surgical History: Breast Surgery, Uterine Ablation Additional Past Surgical History / Comment(s): PAIN CLINIC PROCEDURES, left breast biopsy, colonoscopy Past Anesthesia/Blood Transfusion Reactions: Previous Problems w/ Anesthesia, Motion Sickness Additional Past Anesthesia/Blood Transfusion Reaction / Comm: lidocaine did not work, " felt everything throughout the procedure for uterine ablation and breast biopsy" Past Psychological History: Anxiety, Depression Additional Psychological History / Comment(s): a lot of anxiety with current dx Smoking Status: Never smoker Past Alcohol Use History: None Reported Past Drug Use History: None Reported - Past Family History Sister(s) Family Medical History: Cancer Additional Family Medical History / Comment(s): Breast cancer Father Family Medical History: Cancer Additional Family Medical History / Comment(s): Colon cancer. Mother Family Medical History: Cancer Additional Family Medical History / Comment(s): breast cancer. Maternal aunt and maternal cousin had breast cancer. Medications and Allergies Home Medications Medication Instructions Recorded Confirmed Type FLUoxetine HCL [PROzac] 20 mg PO DAILY 04/01/19 08/29/22 History Levothyroxine Sodium [Synthroid] 25 mcg PO DAILY 02/22/21 08/29/22 History Multivitamins, Thera [Multivitamin 1 tab PO DAILY 02/22/21 08/29/22 History (formulary)] Loratadine-Pseudoeph 10-240 mg 1 tab PO DAILY 08/18/22 08/29/22 History [Claritin-D 24 Hour] Amitriptyline HCl 25 mg PO HS 08/24/22 08/29/22 History Ascorbic Acid [Vitamin C] 500 mg PO DAILY 08/24/22 08/29/22 History Gabapentin [Neurontin] 300 mg PO TID 08/24/22 08/29/22 History Allergies Allergy/AdvReac Type Severity Reaction Status Date / Time bandaids Allergy Rash/Hives Uncoded 08/24/22 14:11 Physical Exam Vitals: Vital Signs Temp Pulse Pulse Pulse Resp BP BP 08/30/22 08:00 97.9 F 80 16 154/83 08/30/22 01:03 97.9 F 84 18 08/29/22 19:45 89 08/29/22 19:30 89 08/29/22 19:15 92 08/29/22 19:00 99 08/29/22 18:45 90 08/29/22 18:30 95 08/29/22 18:15 100 08/29/22 18:00 101 H 08/29/22 17:45 96 17 08/29/22 17:35 98 16 08/29/22 17:18 101 H 16 08/29/22 17:03 102 H 16 08/29/22 16:48 101 H 16 08/29/22 16:33 98.4 F 92 16 08/29/22 10:20 98.0 F 80 16 119/78 BP BP Pulse Ox 08/30/22 08:00 94 L 08/30/22 01:03 141/77 96 08/29/22 19:45 118/74 93 L 08/29/22 19:30 120/77 93 L 08/29/22 19:15 128/83 94 L 08/29/22 19:00 138/86 94 L 08/29/22 18:45 137/81 95 08/29/22 18:30 139/84 91 L 08/29/22 18:15 130/84 93 L 08/29/22 18:00 138/86 93 L 08/29/22 17:45 137/85 92 L 08/29/22 17:35 114/68 93 L 08/29/22 17:18 124/71 94 L 08/29/22 17:03 128/73 99 08/29/22 16:48 124/77 98 08/29/22 16:33 120/71 99 08/29/22 10:20 99 Intake and Output 08/29/22 08/30/22 08/30/22 22:59 06:59 14:59 Intake Total 350 Output Total 425 45 20 Balance -75 -45 -20 Intake: IV 350 Output: Drainage 45 20 Left Breast 20 10 Right Breast 25 10 Urine 400 Estimated Blood Loss 25 Other: Voiding Method External Catheter # Voids 1 Weight 81.6 kg Results CBC & Chem 7: 08/30/22 07:00 Labs: Abnormal Lab Results - Last 24 Hours (Table) 08/30/22 Range/Units 07:00 WBC 13.1 H (3.8-10.6) k/uL Neutrophils # 9.2 H (1.3-7.7) k/uL Assessment and Plan Time with Patient: Greater than 30
[2022-08-30 15:54] VITALS: BP 155/80; PULSE 74; RESP 18; TEMP 98
[2022-08-30] MEDS ORDERED: GABAPENTIN 300 MG CAP PO SCH (16:00)
[2022-08-30] MEDS ORDERED: AMITRIPTYLINE HCL 25 MG TAB PO SCH (21:00)
[2022-08-31] MEDS ORDERED: LORATADINE-PSEUDOEPH 5-120 MG 1 EACH TAB.ER.12H PO SCH (09:00)
[2022-08-31] MEDS ORDERED: MULTIVITAMINS, THERA 1 EACH TAB PO SCH (09:00)
== END 2022-08-30 18:47 | disposition home or self-care (01) ==
LOC: OR 08:50 → 4SSUR 16:43 → OR 08-30 04:35 → 4SSUR 08-30 04:35
PROVIDERS: ADMIT Surgery; ATTEND Surgery
DX: D05.82 Other specified type of carcinoma in situ of left breast (principal); R11.2 Nausea with vomiting, unspecified; M79.7 Fibromyalgia; F32.A Depression, unspecified; F41.9 Anxiety disorder, unspecified; D72.829 Elevated white blood cell count, unspecified; E03.9 Hypothyroidism, unspecified; Z80.3 Family history of malignant neoplasm of breast; Z85.828 Personal history of other malignant neoplasm of skin; Z80.0 Family history of malignant neoplasm of digestive organs; Z79.899 Other long term (current) drug therapy; Z79.890 Hormone replacement therapy
CPT/HCPCS: 96372; 96374; 96375; 85025; 76098; 38792; 19303; 38530; G0378; A9520; J2250; J1200; J1100; J2765; J2405 ×2; J0690; J1170 ×3; J1644 ×2

== ENCOUNTER → 2022-09-01 | Outpatient (CLI) | payer BC ==
[2022-09-01 13:50] VITALS: BP 127/87; PULSE 80; RESP 17; TEMP 98.8
== END ==
LOC: WWCWWP 12:41
PROVIDERS: ATTEND Surgery
DX: Z48.03 Encounter for change or removal of drains (principal); E66.9 Obesity, unspecified; Z68.26 Body mass index [BMI] 26.0-26.9, adult; Z91.048 Other nonmedicinal substance allergy status

== ENCOUNTER → 2022-09-07 | Outpatient (CLI) | payer BC ==
--- NOTE | 2022-09-01 14:01 | P.PN ---
Progress Note - Text Progress Note Date: 09/01/22 Mojgan is a 52 year old white female status post bilateral mastectomies on 08-29-22. She is doing well post procedure. Therefore DEANGELO drains placed. One was removed prior to discharge from the hospital. The lateral axillary drain on the left side has minimal output and is being removed today. The right-sided drain is approximately 200 mL per 24-hour period and the left drain is approximately 100 mL per 24-hour period. These drains will be left in place. Physical exam: Incision clean and dry bilateral DEANGELO output is serous in nature Heart: Regular rate and rhythm Lungs: Clear bilateral Impression: Patient doing well postoperative Plan: DC left axillary drain follow up next week CC: DR. Layton
[2022-09-07 08:46] VITALS: BP 130/84; PULSE 72; RESP 18; TEMP 98
--- NOTE | 2022-09-07 09:09 | P.PN ---
Progress Note - Text Progress Note Date: 09/07/22 Mojgan is a 52 year old white female status post bilateral mastectomies on 08-29-22. She is doing well post procedure. Left breast pathology revealed DCIS approximately 24 mm. in size. It was at least 1 cm from all margins. In the right breast no in situ or invasive malignancy was identified. [place] lymph node was removed which was negative for malignancy. 4 additional axillary nodes removed all negative for malignancy. Physical exam: Incision clean and dry bilateral DEANGELO output is serous in nature; both right and left drain approximately 40 mL per day Heart: Regular rate and rhythm Lungs: Clear bilateral Impression: Patient doing well postoperative Plan: DC sarahi leave the drains at this time for one more week CC: DR. Layton
== END ==
LOC: WWCWWP 08:40
PROVIDERS: ATTEND Surgery
DX: D05.12 Intraductal carcinoma in situ of left breast (principal); Z91.048 Other nonmedicinal substance allergy status

== ENCOUNTER → 2022-09-19 | Outpatient (CLI) | payer BC ==
[2022-09-19 11:58] VITALS: BP 112/78; PULSE 76; RESP 16; TEMP 98
--- NOTE | 2022-09-19 12:21 | P.PN ---
Progress Note - Text Progress Note Date: 09/19/22 Mojgan is a 52 year old white female status post bilateral mastectomies on 08-29-22. She is doing well post procedure. Left breast pathology revealed DCIS approximately 24 mm. in size. It was at least 1 cm from all margins. In the right breast no in situ or invasive malignancy was identified. [place] lymph node was removed which was negative for malignancy. 4 additional axillary nodes removed all negative for malignancy. Physical exam: Incision clean and dry bilateral DEANGELO output is serous in nature; both right and left drain is per day less than 5 mL per day Impression: Patient doing well postoperative Plan: DC drains Appointment with medical oncology Follow-up. 4 months Patient given prescription for bilateral breast prosthesis CC: DR. Layton
== END ==
LOC: WWCWWP 11:23
PROVIDERS: ATTEND Surgery
DX: D05.12 Intraductal carcinoma in situ of left breast (principal); Z91.048 Other nonmedicinal substance allergy status

== ENCOUNTER → 2022-09-21 | Outpatient (CLI) | payer BC ==
--- NOTE | 2022-09-21 11:19 | P.PN ---
Progress Note - Text Progress Note Date: 09/21/22 Mojgan is a 52 year old white female status post bilateral mastectomies on 08-29-22. She is doing well post procedure. Left breast pathology revealed DCIS approximately 24 mm. in size. It was at least 1 cm from all margins. In the right breast no in situ or invasive malignancy was identified. [place] lymph node was removed which was negative for malignancy. 4 additional axillary nodes removed all negative for malignancy. She had her drains removed 09-19-22, she has had a low grade fever and is on antibiotics at this time. Physical exam: Incision clean and dry bilateral; or evidence of infection, no seroma to drain Impression: Patient doing well postoperative Plan: Appointment with medical oncology Patient given prescription for bilateral breast prosthesis Patient given another prescription for cephalexin and will follow-up next week CC: DR. Layton
[2022-09-21 11:48] VITALS: BP 99/69; PULSE 91; RESP 16; TEMP 99.1
== END | disposition home or self-care (01) ==
LOC: WWCWWP 10:55
PROVIDERS: ATTEND Surgery
DX: Z53.9 Procedure and treatment not carried out, unspecified reason (principal)

== ENCOUNTER → 2023-03-02 | Outpatient (CLI) | payer BC ==
[2023-03-02 13:37] VITALS: BP 127/86; PULSE 74; RESP 17; TEMP 97.9
--- NOTE | 2023-03-02 13:49 | P.PN ---
Subjective Progress Note Date: 03/02/23 Principal diagnosis: revision of mastectomy incisions DCIS left breast Mojgan is a 52-year-old white female who was initially seen in consultation for Dr. Layton regarding a mammographic abnormality in her left breast. The area of concern spans about 3.7 cm and she was recommended to undergo a [place] [address]. Pathology revealed high-grade DCIS with comedonecrosis. This is ER/NV positive. The patient was initially going to have 2 areas of the calcifications sampled however secondary to anxiety only one area more anterior portion was sampled. The calcifications appear to be similar throughout this region. The patient has a very strong family history of cancer, and has determined that she would like to have bilateral mastectomies without reconstruction at this time. Initially she was considering BENTLEY reconstruction, we have called the patient after making contact with [facility], and [facility] regarding the BENTLEY reconstructive procedure. We have sent referral information to [facility]; [phone]; as well as Dr. Vazquez. We have contacted [facility] and are waiting to hear back, and told the patient if she is interested she can contact them. At this time she is not interested in [facility] and has decided against reconstruction. Mojgan underwent bilateral mastectomy on 08-29-22. Her pathology revealed 24mm left breast DCIS, in the right breast no cancer. She did not have any radiation therapy. She did not have any hormone therapy after seeing medical oncology. She had genetic testing which showed a variant of unknown significance. She is concerned about some lateral dog ears on both sides and an area of indentation in the medial aspect of the right mastectomy incision. Caffeine: 2 cups per day Nicotine: None Chocolate: Daily Hormones: None, control pills 10 years. It 30 years ago Family history: Mother: at 47 of breast cancer Maternal aunt: Bilateral breast cancer Maternal cousin: Bilateral breast cancer Sister: Bilateral breast cancer 52 Father: Colon cancer, from lung metastases at 76 Patient: Basal cell cancer Removal history: Menarche: 13 M2, breast-fed: Yes I'll 4, age at first live : 17 Menopause: Ablation several years ago. She went through menopause proximal lingular year ago Surgical history: Uterine ablation Colonoscopies Skin cancer removed left shoulder Medical history: Hypothyroid Prozac for depression, fibromyalgia related Social history: Nicotine: Negative Alcohol: Stopped 2 years ago history drinks several a day Drugs: Negative Review of systems: Anesthesia: [place] HEENT: Negative Breasts: As above Cardiovascular: Chest pain or shortness of breath at times Breast history: Shortness of breath at times GI: Negative : Postmenopausal Musculoskeletal: Fibromyalgia Integument: Basal cell cancer left forearm, shoulder, chest Neurological: Negative Psychiatric: Anxiety/depression Endocrine: Hypothyroid Hematologic: Negative Objective - Vital Signs Vital signs: Vital Signs Temp 97.9 F 03/02/23 13:34 Pulse 74 03/02/23 13:34 Resp 17 03/02/23 13:34 BP 127/86 03/02/23 13:34 Pulse Ox 98 03/02/23 13:34 FiO2 Intake & Output 03/01/23 03/02/23 03/02/23 18:59 06:59 18:59 Weight 81.647 kg - Constitutional General appearance: Present: cooperative - EENT Eyes: Present: EOMI ENT: Present: hearing grossly normal - Neck Neck: Present: normal ROM - Respiratory Respiratory: bilateral: CTA - Cardiovascular Rhythm: regular Heart sounds: normal: S1, S2 - Gastrointestinal General gastrointestinal: Present: soft - Integumentary Integumentary: Present: normal turgor - Musculoskeletal Musculoskeletal: Present: gait normal - Psychiatric Psychiatric: Present: A&O x's 3, appropriate affect, intact judgment & insight - Additional findings Additional findings: Chest wall exam: inspection: Bilateral well-healed scars, bilateral lateral small dog ears, small area of indentation medial portion of the incision Palpation: Right chest wall: Multi-positional exam no evidence of any cancer or nodules of concern Right axilla: No adenopathy of concern Small lateral dog ear in the axillary area of the incision Left chest wall: Multiple positional exam no evidence of any cancer or nodules of concern Small lateral dog ear in the axillary portion of the incision Left axilla: No adenopathy of concern In the midportion of the incision there is a small area of indentation Assessment and Plan Assessment: Impression: Patient status post bilateral mastectomy for DCIS left breast no evidence of recurrence Patient with bilateral axillary dogears and wishes these to be excised Patient with small area of indentation in the medial portion of the right breast incision Plan: No evidence of recurrent cancer, patient is doing well Patient wishes revision of mastectomy incisions Plan excision of bilateral axillary dogears, ReVision of medial portion of the right mastectomy incision Has been given the option of seeing a plastic surgeon and at this time she has declined. Cc: Dr. Layton
== END ==
LOC: WWCWWP 13:27
PROVIDERS: ATTEND Surgery
DX: Z85.3 Personal history of malignant neoplasm of breast (principal); E03.9 Hypothyroidism, unspecified; F41.9 Anxiety disorder, unspecified; M79.7 Fibromyalgia; Z80.0 Family history of malignant neoplasm of digestive organs; Z80.3 Family history of malignant neoplasm of breast; Z85.828 Personal history of other malignant neoplasm of skin; Z90.13 Acquired absence of bilateral breasts and nipples; Z91.018 Allergy to other foods

== ENCOUNTER 2023-03-20 07:10 | Day surgery (SDC) | payer BC ==
[~2023-03-20 07:10] MED LIST changes: -DEXAMETHASONE SOD PHOSPHATE 4 MG/ML 1 ML VIAL IV ONE; +HYDROmorphone 0.5 MG/0.5 ML SYRINGE IVP PRN; +LACTATED RINGERS 1,000 ML IV SCH; +fentaNYL (PF) 50 MCG/ML 2 ML AMP IV PRN
[2023-03-20] MEDS ORDERED: LACTATED RINGERS 1,000 ML IV ONE ×2 (07:50→11:17)
[2023-03-20 08:00] LABS: Basophils # (A) 0.1 k/uL (0-0.2); Basophils % (A) 1 %; Eosinophils # (A) 0.3 k/uL (0-0.7); Eosinophils % (A) 5 %; HCT 43.9 % (34.0-46.0); HGB 14.8 gm/dL (11.4-16.0); Lymphocytes % (A) 31 %; MCH 28.3 pg (25.0-35.0); MCHC 33.7 g/dL (31.0-37.0); MCV 84.2 fL (80.0-100.0); Mean Platelet Volume 6.8; Monocytes # (A) 0.4 k/uL (0-1.0); Monocytes % (A) 7 %; Neutrophils # (A) 3.5 k/uL (1.3-7.7); Neutrophils % (A) 54 %; Platelet Count 357 k/uL (150-450); RBC 5.21 m/uL (3.80-5.40); RDW 13.3 % (11.5-15.5); WBC 6.5 k/uL (3.8-10.6)
[2023-03-20] MEDS: ONDANSETRON 4 MG/2 ML VIAL ONE ×2 (08:04→12:10)
[2023-03-20 08:11] LABS: African American GFR (CKD) >90 (>60 ml/min/1.73 sqM); Anion Gap 10 mmol/L; Blood Urea Nitrogen 15 mg/dL (7-17); Calcium 9.6 mg/dL (8.4-10.2); Carbon Dioxide 27 mmol/L (22-30); Chloride 104 mmol/L (98-107); Glucose 92 mg/dL (74-99); Non-African American GFR(CKD) 82 (>60 ml/min/1.73 sqM); Potassium 4.1 mmol/L (3.5-5.1); Sodium 141 mmol/L (137-145)
[2023-03-20] MEDS ORDERED: HYDROmorphone (PF) 1 MG/ML ONE (08:39)
[2023-03-20] MEDS ORDERED: LIDOCAINE 2% INJ 20 MG/ML (2 ML VIAL) ONE (08:39)
[2023-03-20] MEDS ORDERED: PROPOFOL 10 MG/ML 20 ML VIAL IV ONE (08:39)
[2023-03-20] MEDS ORDERED: MIDAZOLAM 2 MG/2 ML VIAL ONE (08:39)
[2023-03-20] MEDS ORDERED: fentaNYL (PF) 50 MCG/ML 2 ML AMP ONE (08:39)
[2023-03-20] MEDS ORDERED: SUCCINYLCHOLINE CHLORIDE 200 MG/10 ML VIAL IV ONE (08:39)
[2023-03-20] MEDS ORDERED: ePHEDrine 50 MG/ML 1 ML VIAL ONE (08:39)
[2023-03-20] MEDS ORDERED: SODIUM CHLORIDE 0.9% 50 ML with ceFAZolin 2,000 MG IV ONE ×2 (09:01)
--- NOTE | 2023-03-20 10:24 | P.PCN ---
Date of Procedure: 03/20/23 Preoperative Diagnosis: Redundant tissue bilateral mastectomy incisions Postoperative Diagnosis: Same Procedure(s) Performed: Revision bilateral mastectomy incisions Anesthesia: MARISA Surgeon: Gricelda Lane Estimated Blood Loss (ml): 10 IV fluids (ml): 700 Pathology: other (Skin and subcutaneous tissue) Condition: stable Disposition: same day Indications for Procedure: Redundant tissue bilateral mastectomy incisions Operative Findings: Skin and subcutaneous tissue Description of Procedure: In the preoperative area redundant axillary tissue bilaterally was marked for excision. Additionally there was a portion the midportion of the incision which showed some indentation and this was marked for excision. The patient was brought to the operative suite. Following induction of anesthesia the chest hernandez in the area of both axillas were prepped and draped in a sterile fashion. The left side was approached initially. Using the area that was marked an incision was made and additional skin and subcutaneous tissue was resected laterally. This was a half centimeters in length. Was well irrigated. After assured that hemostasis was attained Surgicel part of from was placed. The deep tissues were closed using 3-0 Vicryl suture. This was followed by a 4-0 Monocryl subcuticular suture. This was followed by a 4-0 nylon skin suture. The midportion of the incision however there was indentation of the incision was then evaluated and excised. This was 20 cm in length. The wound was well irrigated. After assured that hemostasis was attained the deep tissues were approximated using 3-0 Vicryl suture. This was followed by closure with 4-0 Monocryl subcuticular suture and a 4-0 nylon skin suture. The area of the right axilla was then approached. The area was 11 cm in length. The skin and subcutaneous tissue was excised. After assured that hemostasis was attained the wound was well irrigated. Surgicel and pelvis on was placed. Deep tissues were reapproximated using 3-0 Vicryl suture. This was followed by 4-0 Monocryl subcuticular suture. This was followed by a 4-0 nylon skin suture. The patient tolerated the procedure in stable condition. All instrument and sponge counts were correct at the end of the case. Sterile dressings were applied and an Torsten wrap was placed.
[2023-03-20 10:41] VITALS: TEMP 97.5
[2023-03-20] MEDS ORDERED: HYDROmorphone 0.5 MG/0.5 ML SYRINGE IVP ONE ×2 (11:07→11:18)
[2023-03-20] MEDS ORDERED: ONDANSETRON 4 MG/2 ML VIAL ONE (12:07)
[2023-03-20] MEDS ORDERED: GABAPENTIN 300 MG CAP PO STA (12:20)
[2023-03-20] MEDS ORDERED: IV FLUID CONTINUATION 1,000 ML IV ONE (13:06)
[2023-03-20 13:54] VITALS: BP 94/61; PULSE 81; RESP 16
== END 2023-03-20 15:28 | disposition home or self-care (01) ==
LOC: OR 07:10
PROVIDERS: ATTEND Surgery
DX: N60.32 Fibrosclerosis of left breast (principal); Z79.899 Other long term (current) drug therapy; Z85.3 Personal history of malignant neoplasm of breast
CPT/HCPCS: 19303; 13101; 80048; 85025; J2250; J0330; J2405; J0690; J3010; J1170 ×2; J2704; J1790; J1644; J2001; 88305

== ENCOUNTER → 2023-03-29 | Outpatient (CLI) | payer BC ==
[2023-03-29 09:33] VITALS: BP 116/81; PULSE 65; RESP 16; TEMP 97.8
--- NOTE | 2023-03-29 09:39 | P.PN ---
Progress Note - Text Progress Note Date: 03/29/23 Mojgan is a 52-year-old white female status post bilateral mastectomy scar revisions on 5222. Post procedure she is doing well. The patient supposed mastectomy which was performed in [id number] revealed high-grade DCIS with comedonecrosis in her left breast. The right breast mastectomy did not reveal any cancer. She did have a left breast sentinel node removed which was negative for cancer. 4 additional nodes removed all negative for cancer. The patient at this time is doing well post operatively but is complaining of anxiety related to concerns that she may have an additional cancer somewhere else in her body. She has asked about getting a PET scan and would like to have further systemic workup. Examination: Lungs: Clear Heart: Regular rate and rhythm Incisions clean and dry Plan: Removal sutures Follow-up Dr. Layton regarding further systemic workup at this time there is nothing which would indicate any breast cancer systemically Follow-up. 4 months Cc: Dr. Layton
== END ==
LOC: WWCWWP 09:05
PROVIDERS: ATTEND Surgery
DX: Z85.3 Personal history of malignant neoplasm of breast (principal); Z88.8 Allergy status to other drugs, medicaments and biological substances

== ENCOUNTER → 2023-04-13 | Outpatient (CLI) | payer BC ==
--- NOTE | 2023-04-13 11:50 | P.PN ---
Progress Note - Text Progress Note Date: 04/13/23 Mojgan is a 52-year-old white female status post bilateral mastectomy scar revisions on 5222. Post procedure she is doing well. 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 The right breast mastectomy did not reveal any cancer. She did have a left breast sentinel node removed which was negative for cancer. 4 additional nodes removed all negative for cancer. The patient at this time is doing well post operatively but is complaining of some sutures which seemed to have worked their way out of this skin medially and on the right lateral incision. Examination: Incisions clean and dry, a small suture is started to work its way out of the medial incision and one at the right lateral incision Plan: Clipping of sutures with a worked their way through the skin this was done without difficulty Follow-up Dr. Layton regarding further systemic workup at this time there is nothing which would indicate any breast cancer systemically Follow-up. 4 months Cc: Dr. Layton
== END ==
LOC: WWCWWP 11:26
PROVIDERS: ATTEND Surgery
DX: Z85.3 Personal history of malignant neoplasm of breast (principal); Z88.8 Allergy status to other drugs, medicaments and biological substances